=== PATIENT | male | born 1935 ===

== ENCOUNTER 2021-04-22 14:50 | Inpatient (IN) | payer MEDICARE ==
[2021-04-22] MEDS ORDERED: diphenhydrAMINE 50 MG/ML SDV ONE (15:33)
[2021-04-22] MEDS ORDERED: Sodium Chloride 0.9% 2.5 ML Syringe FLUSH PRN (15:41)
[2021-04-22] MEDS ORDERED: Sodium Chloride 0.9% 10 ML Syringe FLUSH PRN (15:41)
[2021-04-22] MEDS ORDERED: diphenhydrAMINE 50 MG/ML SDV IVPUSH ONE (15:42)
[2021-04-22] MEDS ORDERED: Sodium Chloride 0.9% 1,000 ML IV ONE (15:43)
[2021-04-22] MEDS ORDERED: LORazepam 2 MG/ML SDV IVPUSH ONE (15:56)
--- NOTE | 2021-04-22 16:26 | CR ---
For Patients: As a result of the Century Cures Act, medical imaging exams and procedure reports are released immediately into your electronic medical record. You may view this report before your referring provider. If you have questions, please contact your health care provider. Indication: Cough Comparison: Single view chest February 22, 2021 Technique: Single AP view chest Findings: There is hyperinflation and chronic interstitial change. There are increasing interstitial markings likely representing developing pulmonary vascular congestion with superimposed airspace opacity in the left upper lobe likely representing infiltrates. There is no pleural effusion or pneumothorax. The cardiac silhouette is mildly prominent similar to previous exam. The bony thorax is grossly intact. Impression: There is hyperinflation and increasing interstitial markings likely representing pulmonary vascular congestion with developing airspace opacity in the left upper lobe likely representing infiltrate. Dictated by London Soria MD @ 04/22/2021 4:24:[address] London Soria @ Apr 22 2021 4:24PM
[2021-04-22] MEDS ORDERED: cefTRIAXone 1 GM in Premix Bag 1 BAG IV ONE (16:31)
[2021-04-22 16:36] LABS: BLOOD UREA NITROGEN,BUN 40 mg/dL (7.0-18.0); CARBON DIOXIDE,CO2 27.9 mmol/L (21.0-32.0); CHLORIDE,CL 105 mmol/L (98-107); GLUCOSE RANDOM 171 mg/dL (74-106); POTASSIUM,K 4.5 mmol/L (3.5-5.1); SODIUM,NA 142 mmol/L (136-148)
--- NOTE | 2021-04-22 17:35 | EDM.PDOC ---
ED HPI GENERAL MEDICAL PROBLEM - General Chief Complaint: General Stated Complaint: POSS PX Time Seen by Provider: 04/22/21 15:14 - History of Present Illness INITIAL COMMENTS - FREE TEXT/NARRATIVE: HISTORY AND PHYSICAL: History of present illness: This is an 85-year-old gentleman with a history significant for Parkinson's disease, mild dementia, atrial fibrillation on anticoagulant therapy and digoxin, who presents ER today for further evaluation of altered mentation, shortness of breath, concerns for pneumonia from his nursing facility. Patient's is at bedside and is assisting with patient's history. Upon arrival to the ED, history is not obtainable from the patient as he is nonverbal. According to the although the patient does have some underlying dementia, she reports that at baseline he is able to have conversations with her. No identified fever at his nursing facility. Patient has been having a yellow productive cough with difficulty breathing. Patient has been able to tolerate some p.o. solids and liquids. reports no change in stool or urinary output. No new rashes. No recent falls or head trauma. Review of systems: As per history of present illness and below otherwise all systems reviewed and negative. Past medical history: As per history of present illness and as reviewed below otherwise noncontributory. Surgical history: As per history of present illness and as reviewed below otherwise noncontributory. Social history: No reported history of drug abuse. Family history: As per history of present illness and as reviewed below otherwise noncontributory. Physical exam: This patient was seen and evaluated during the 2019 SARS-CoV-2 novel coronavirus pandemic period. Community viral transmission is ongoing at time of this encounter and the emergency department is operating under pandemic response procedures. Constitutional: Patient was sonorous, loud respirations with his mouth open wide. Patient appears to be responding to the environment however he is nonverbal. Patient is unable to close his mouth and appears to have rotatory movement of his tongue. HEENT: Moist mucous membranes Head: Normocephalic and atraumatic Eyes: Right eye exhibits no discharge. Left eye exhibits no discharge. No scleral icterus Neck: Normal range of motion. No tracheal deviation present. Cardiovascular: Normal rate and regular rhythm. Pulmonary: Coarse breath sounds bilaterally. Abdominal: No distention Musculoskeletal: Normal range of motion Neurologic: Unable to assess Skin: [place], warm and dry. No diaphoresis Psychiatric: Unable to assess however patient does appear to have episodes of visual hallucinations which the reports he has had in the past but never is frequent is today. Nursing note and vital signs have been reviewed Diagnostics: Patient had a chest x-ray which revealed increased interstitial markings likely representing developing pulmonary vascular congestion with super imposed airspace opacity in the left upper lobe likely representing infiltrate. Patient's labs are significant for a white count of 10.0 with a slight left shift. Patient is a 89 segs and 10 lymphs. Patient's INR is elevated at 7. Patient's electrolytes are all within normal limits. Patient does have an elevated BUN and creatinine of 40 and 1.5. Patient's lactic acid level was 2.9 Therapeutics: Upon initial arrival into the ED, it was unclear the source of the patient's symptoms. Patient's jaw was clenched open with some rotary movement of his tongue. Patient was recently started on Remeron with his first dose yesterday. It was felt that this may be secondary to a dystonic reactions that he was given 50 mg of IV Benadryl without any significant change in his symptoms. Patient was continuing to have episodes of jerking movements which the attributed to visual hallucinations. Patient was given 0.5 mg of Ativan with resolution of the jerking movements and anxiety from the appearance of seeing visual hallucinations. Patient was given 1 g of IV Rocephin as well as NSS x1 L. Assessment and plan: This is an 85-year-old gentleman with a history significant for Parkinson's disease who is currently residing in a nursing facility secondary to a recent hip fracture in mid February. Patient presents ER today secondary to the [facility] concerned that he might have developed a pneumonia. Patient's chest x-ray reveals that he does have an opacification in the left upper lobe. Definitive disposition and diagnosis as appropriate pending reevaluation and review of above. - Related Data Allergies Allergy/AdvReac Type Severity Reaction Status Date / Time hydrocodone Allergy Cannot Verified 04/23/21 01:26 Remember oxycodone Allergy Cannot Verified 04/22/21 15:41 Remember Home Meds: Home Meds Carbidopa/Levodopa [Carbidopa-Levodopa 25-100] 1 tab PO QID 02/22/21 [History] Digoxin 125 mcg PO DAILY 02/22/21 [History] Doxazosin Mesylate [Cardura] 4 mg PO DAILY 02/22/21 [History] Finasteride [Proscar] 5 mg PO DAILY 02/22/21 [History] Levothyroxine 25 mcg PO DAILY 02/22/21 [History] Metoprolol Succinate 50 mg PO DAILY 02/22/21 [History] Warfarin Sodium 5 mg PO ASDIRECTED 02/22/21 [History] Carboxymethylcellulose Sodium [Artificial Tears] 1 drop EYEBOTH Q12H PRN 04/22/21 [History] Cholecalciferol (Vitamin D3) [Vitamin D3] 4,000 unit PO DAILY 04/22/21 [History] Docusate Sodium 100 mg PO BID 04/22/21 [History] Magnesium Hydroxide [Milk of Magnesia] 30 ml PO DAILY PRN 04/22/21 [History] Mirtazapine 7.5 mg PO BEDTIME 04/22/21 [History] Vit C/E/Zn/Coppr/Lutein/Zeaxan [Preservision Areds 2 Softgel] 1 each PO DAILY 04/22/21 [History] bisacodyL [Dulcolax] 10 mg RECTAL DAILY PRN 04/22/21 [History] traMADol [Ultram] 50 mg PO Q6H PRN 04/22/21 [History] Past Medical History Cardiovascular History: Reports: Afib, Hypertension Genitourinary History: Reports: Prostate Disorder Neurological History: Reports: Parkinson's, TIA Psychiatric History: Reports: Anxiety, Depression Endocrine/Metabolic History: Reports: Hypothyroidism - Infectious Disease History Infectious Disease History: Reports: None Social & Family History - Family History Family Medical History: No Pertinent Family History ED ROS GENERAL - Review of Systems Review Of Systems: See Below ED EXAM, GENERAL - Physical Exam Exam: See Below Course - Vital Signs Last Recorded V/S: Last Vital Signs Temp 97.8 F 04/23/21 04:32 Pulse 82 04/23/21 04:32 Resp 20 04/23/21 04:32 BP 143/74 H 04/23/21 04:32 Pulse Ox 97 04/23/21 04:32 - Orders/Labs/Meds Orders: Active Orders 24 hr Category Date Time Status Patient Status [ADT] Routine ADT 04/22/21 18:53 Active CULTURE BLOOD [BC] Stat Lab 04/22/21 15:38 Received CULTURE BLOOD [BC] Stat Lab 04/22/21 16:46 Received UA W/BEVERLY RFLX IF INDICATED [URIN] Stat Lab 04/22/21 15:42 Ordered Sodium Chloride 0.9% [Saline Flush] Med 04/22/21 15:41 Active 10 ml FLUSH ASDIRECTED PRN Sodium Chloride 0.9% [Saline Flush] Med 04/22/21 15:41 Active 2.5 ml FLUSH ASDIRECTED PRN Blood Culture x2 Reflex Set [OM.PC] Stat Oth 04/22/21 16:30 Ordered RT Suction Nasopharyngeal [RESPCARE] Stat Oth 04/22/21 17:40 Active Saline Lock Insert [OM.PC] Stat Oth 04/22/21 15:41 Ordered Medication Orders Carbidopa/Levodopa (Carbidopa/Levodopa 25-100 Mg Tab) 1 tab PO QID [facility] Last Admin: 04/23/21 07:06 Dose: Not Given Documented by: LUIS Azithromycin 500 mg/ Sodium (Chloride) 250 mls @ 250 mls/hr IV ONETIME [facility] Last Admin: 04/22/21 19:43 Dose: 250 mls/hr Documented by: AHMET Azithromycin 500 mg/ Sodium (Chloride) 250 mls @ 250 mls/hr IV Q24H ZEB Ceftriaxone Sodium/Dextrose (Rocephin In Dextrose,Iso-Osm 1 Gm/50 Ml) 50 mls @ 100 mls/hr IV Q24H [facility] Levothyroxine Sodium (Levothyroxine 25 Mcg Tab) 25 mcg PO ACBREAKFAST ZEB Metoprolol Succinate (Metoprolol Succinate 50 Mg Tab.Er) 50 mg PO DAILY [facility] Sodium Chloride (Sodium Chloride 0.9% 10 Ml Syringe) 10 ml FLUSH ASDIRECTED PRN PRN Reason: Keep Vein Open Last Admin: 04/22/21 15:44 Dose: 10 ml Documented by: [email or web address] Sodium Chloride (Sodium Chloride 0.9% 2.5 Ml Syringe) 2.5 ml FLUSH ASDIRECTED PRN PRN Reason: Keep Vein Open Last Admin: 04/22/21 15:44 Dose: 2.5 ml Documented by: [email or web address] Labs: Laboratory Tests 04/22/21 04/22/21 04/22/21 Range/Units 15:38 15:38 16:00 WBC 10.03 (4.0-11.0) K/uL RBC 4.20 L (4.50-5.90) M/uL Hgb 11.8 L (13.0-17.0) g/dL Hct 38.5 (38.0-50.0) % MCV 91.7 (80.0-98.0) fL MCH 28.1 (27.0-32.0) pg MCHC 30.6 L (31.0-37.0) g/dL RDW Std Deviation 46.1 (28.0-62.0) fl RDW Coeff of Yanna 14 (11.0-15.0) % Plt Count 198 (150-400) K/uL MPV 10.10 (7.40-12.00) fL Neut % (Auto) 89.0 H (48.0-80.0) % Lymph % (Auto) 6.1 L (16.0-40.0) % [place] % (Auto) 4.7 (0.0-15.0) % Eos % (Auto) 0.1 (0.0-7.0) % Baso % (Auto) 0.1 (0.0-1.5) % Neut # (Auto) 8.9 H (1.4-5.7) K/uL Lymph # (Auto) 0.6 (0.6-2.4) K/uL [place] # (Auto) 0.5 (0.0-0.8) K/uL Eos # (Auto) 0.0 (0.0-0.7) K/uL Baso # (Auto) 0.0 (0.0-0.1) K/uL Nucleated RBC % 0.0 /100WBC Nucleated RBCs # 0 K/uL INR APTT (18.6-31.3) SEC Sodium 142 (136-148) mmol/L Potassium 4.5 (3.5-5.1) mmol/L Chloride 105 (98-107) mmol/L Carbon Dioxide 27.9 (21.0-32.0) mmol/L BUN 40 H (7.0-18.0) mg/dL Creatinine 1.5 H (0.8-1.3) mg/dL Est Cr Clr Drug Dosing TNP Estimated GFR (MDRD) 44.7 ml/min Glucose 171 H (74-106) mg/dL Lactic Acid 2.9 H* (0.4-2.0) mmol/L Calcium 8.8 (8.5-10.1) mg/dL Total Bilirubin 0.6 (0.2-1.0) mg/dL AST 22 (15-37) IU/L ALT 13 L (14-63) IU/L Alkaline Phosphatase 143 H (46-116) U/L Total Protein 7.8 (6.4-8.2) g/dL Albumin 2.6 L (3.4-5.0) g/dL Globulin 5.2 H (2.6-4.0) g/dL Albumin/Globulin Ratio 0.5 L (0.9-1.6) Digoxin 0.7 L (0.9-2.0) ng/mL SARS-CoV-2 RNA (GARRETT) (NEGATIVE) 04/22/21 04/22/21 Range/Units 16:00 17:44 WBC (4.0-11.0) K/uL RBC (4.50-5.90) M/uL Hgb (13.0-17.0) g/dL Hct (38.0-50.0) % MCV (80.0-98.0) fL MCH (27.0-32.0) pg MCHC (31.0-37.0) g/dL RDW Std Deviation (28.0-62.0) fl RDW Coeff of Yanna (11.0-15.0) % Plt Count (150-400) K/uL MPV (7.40-12.00) fL Neut % (Auto) (48.0-80.0) % Lymph % (Auto) (16.0-40.0) % [place] % (Auto) (0.0-15.0) % Eos % (Auto) (0.0-7.0) % Baso % (Auto) (0.0-1.5) % Neut # (Auto) (1.4-5.7) K/uL Lymph # (Auto) (0.6-2.4) K/uL [place] # (Auto) (0.0-0.8) K/uL Eos # (Auto) (0.0-0.7) K/uL Baso # (Auto) (0.0-0.1) K/uL Nucleated RBC % /100WBC Nucleated RBCs # K/uL INR 7.03 H* APTT 54.1 H (18.6-31.3) SEC Sodium (136-148) mmol/L Potassium (3.5-5.1) mmol/L Chloride (98-107) mmol/L Carbon Dioxide (21.0-32.0) mmol/L BUN (7.0-18.0) mg/dL Creatinine (0.8-1.3) mg/dL Est Cr Clr Drug Dosing Estimated GFR (MDRD) ml/min Glucose (74-106) mg/dL Lactic Acid (0.4-2.0) mmol/L Calcium (8.5-10.1) mg/dL Total Bilirubin (0.2-1.0) mg/dL AST (15-37) IU/L ALT (14-63) IU/L Alkaline Phosphatase (46-116) U/L Total Protein (6.4-8.2) g/dL Albumin (3.4-5.0) g/dL Globulin (2.6-4.0) g/dL Albumin/Globulin Ratio (0.9-1.6) Digoxin (0.9-2.0) ng/mL SARS-CoV-2 RNA (GARRETT) NEGATIVE (NEGATIVE) Meds: Medications Generic Name Dose Route Start Last Admin Trade Name Freq PRN Reason Stop Dose Admin Carbidopa/Levodopa 1 tab 04/23/21 06:00 04/23/21 07:06 Carbidopa/Levodopa 25-100 Mg Tab PO Not Given QID ZEB Azithromycin 500 mg/ Sodium 250 mls @ 250 mls/hr 04/22/21 19:00 04/22/21 19:43 Chloride IV 250 mls/hr ONETIME ZEB Administration Azithromycin 500 mg/ Sodium 250 mls @ 250 mls/hr 04/23/21 16:00 Chloride IV Q24H ZEB Ceftriaxone Sodium/Dextrose 50 mls @ 100 mls/hr 04/23/21 16:00 Rocephin In Dextrose,Iso-Osm 1 Gm/50 Ml IV Q24H ZEB Levothyroxine Sodium 25 mcg 04/23/21 07:30 Levothyroxine 25 Mcg Tab PO ACBREAKFAST ZEB Metoprolol Succinate 50 mg 04/23/21 09:00 Metoprolol Succinate 50 Mg Tab.Er PO DAILY ZEB Sodium Chloride 10 ml 04/22/21 15:41 04/22/21 15:44 Sodium Chloride 0.9% 10 Ml Syringe FLUSH 10 ml ASDIRECTED PRN Administration Keep Vein Open Sodium Chloride 2.5 ml 04/22/21 15:41 04/22/21 15:44 Sodium Chloride 0.9% 2.5 Ml Syringe FLUSH 2.5 ml ASDIRECTED PRN Administration Keep Vein Open Discontinued Medications Generic Name Dose Route Start Last Admin Trade Name Freq PRN Reason Stop Dose Admin Diphenhydramine HCl Confirm 04/22/21 15:33 04/22/21 15:43 Diphenhydramine 50 Mg/Ml Sdv Administered 04/22/21 15:34 Not Given Dose 50 mg .ROUTE .STK-MED ONE Diphenhydramine HCl 50 mg 04/22/21 15:42 04/22/21 15:43 Diphenhydramine 50 Mg/Ml Sdv IVPUSH 04/22/21 15:43 50 mg ONETIME ONE Administration Sodium Chloride 1,000 mls @ 999 mls/hr 04/22/21 15:43 04/22/21 15:45 Normal Saline IV 04/22/21 16:43 999 mls/hr .Bolus ONE Administration Ceftriaxone Sodium/Dextrose 1 50 mls @ 100 mls/hr 04/22/21 16:31 04/22/21 17:19 gm/ Premix IV 04/22/21 17:00 100 mls/hr ONETIME ONE Administration Lorazepam 0.5 mg 04/22/21 15:56 04/22/21 16:11 Lorazepam 2 Mg/Ml Sdv IVPUSH 04/22/21 15:57 0.5 mg ONETIME ONE Administration Departure - Departure Time of Disposition: 18:00 Disposition: Admitted As Inpatient 68 Condition: Good Clinical Impression: Hypoxemia, Pneumonia - Discharge Information Sepsis Event Note (ED) - Evaluation Sepsis Screening Result: No Definite Risk - My Orders Last 24 Hours: My Active Orders 04/22/21 15:38 CULTURE BLOOD [BC] Stat 04/22/21 15:41 Sodium Chloride 0.9% [Saline Flush] 10 ml FLUSH ASDIRECTED PRN Sodium Chloride 0.9% [Saline Flush] 2.5 ml FLUSH ASDIRECTED PRN Saline Lock Insert [OM.PC] Stat 04/22/21 15:42 UA W/BEVERLY RFLX IF INDICATED [URIN] Stat 04/22/21 16:30 Blood Culture x2 Reflex Set [OM.PC] Stat 04/22/21 16:46 CULTURE BLOOD [BC] Stat 04/22/21 17:40 RT Suction Nasopharyngeal [RESPCARE] Stat 04/22/21 18:53 Patient Status [ADT] Routine - Assessment/Plan Last 24 Hours: My Active Orders 04/22/21 15:38 CULTURE BLOOD [BC] Stat 04/22/21 15:41 Sodium Chloride 0.9% [Saline Flush] 10 ml FLUSH ASDIRECTED PRN Sodium Chloride 0.9% [Saline Flush] 2.5 ml FLUSH ASDIRECTED PRN Saline Lock Insert [OM.PC] Stat 04/22/21 15:42 UA W/BEVERLY RFLX IF INDICATED [URIN] Stat 04/22/21 16:30 Blood Culture x2 Reflex Set [OM.PC] Stat 04/22/21 16:46 CULTURE BLOOD [BC] Stat 04/22/21 17:40 RT Suction Nasopharyngeal [RESPCARE] Stat 04/22/21 18:53 Patient Status [ADT] Routine
[2021-04-22] MEDS ORDERED: Azithromycin 500 MG in Sodium Chloride 0.9% 250 ML IV SCH (19:00)
--- NOTE | 2021-04-23 00:26 | PCM.HP.2 ---
H&P History of Present Illness - General Date of Service: 04/22/21 Admit Problem/Dx: Admission Diagnosis/Problem Admission Diagnosis/Problem Pneumonia - History of Present Illness Initial Comments - Free Text/Narative: 85 yo male with pmh of Parkinson's and dementia who was [facility] due to recent right hip fracture. Patient was brought to the ER due to concerns of pneumonia. PAtient had course breath sounds and was nonverbal. According to patient is normally not orientated but does speak. Apparently there had been a sharp decline in his mental status since admitted to [facility]. - Related Data Allergies/Adverse Reactions: Allergies Allergy/AdvReac Type Severity Reaction Status Date / Time hydrocodone Allergy Cannot Verified 04/23/21 01:26 Remember oxycodone Allergy Cannot Verified 04/22/21 15:41 Remember Home Medications: Home Meds Carbidopa/Levodopa [Carbidopa-Levodopa 25-100] 1 tab PO QID 02/22/21 [History] Digoxin 125 mcg PO DAILY 02/22/21 [History] Doxazosin Mesylate [Cardura] 4 mg PO DAILY 02/22/21 [History] Finasteride [Proscar] 5 mg PO DAILY 02/22/21 [History] Levothyroxine 25 mcg PO DAILY 02/22/21 [History] Metoprolol Succinate 50 mg PO DAILY 02/22/21 [History] Warfarin Sodium 5 mg PO ASDIRECTED 02/22/21 [History] Carboxymethylcellulose Sodium [Artificial Tears] 1 drop EYEBOTH Q12H PRN 04/22/21 [History] Cholecalciferol (Vitamin D3) [Vitamin D3] 4,000 unit PO DAILY 04/22/21 [History] Docusate Sodium 100 mg PO BID 04/22/21 [History] Magnesium Hydroxide [Milk of Magnesia] 30 ml PO DAILY PRN 04/22/21 [History] Mirtazapine 7.5 mg PO BEDTIME 04/22/21 [History] Vit C/E/Zn/Coppr/Lutein/Zeaxan [Preservision Areds 2 Softgel] 1 each PO DAILY 04/22/21 [History] bisacodyL [Dulcolax] 10 mg RECTAL DAILY PRN 04/22/21 [History] traMADol [Ultram] 50 mg PO Q6H PRN 04/22/21 [History] Past Medical History Cardiovascular History: Reports: Afib, Hypertension Genitourinary History: Reports: Prostate Disorder Neurological History: Reports: Parkinson's, TIA Psychiatric History: Reports: Anxiety, Depression Endocrine/Metabolic History: Reports: Hypothyroidism - Infectious Disease History Infectious Disease History: Reports: None Social & Family History - Family History Family Medical History: No Pertinent Family History H&P Review of Systems - Review of Systems: Review Of Systems: Unable To Obtain Reason Not Obtained: nonverbal Exam - Exam Exam: See Below - Vital Signs Vital Signs: Last Vital Signs Temp 36.1 C 04/22/21 15:30 Pulse 76 04/22/21 21:32 Resp 20 04/22/21 21:32 BP 134/76 04/22/21 21:32 Pulse Ox 95 04/22/21 21:32 Weight: 62.596 kg - Exam General: Lethargic HEENT: Conjunctiva Clear, Mucosa Moist & [place] Lungs: Normal Respiratory Effort, Rhonchi Cardiovascular: Regular Rate, Regular Rhythm GI/Abdominal Exam: Normal Bowel Sounds, Soft Extremities: Non-Tender, No Pedal Edema Skin: Warm, Dry, Intact Neurological: Other (does not follow commands, moves all for extremities) - Patient Data Lab Results Last 24 hrs: Laboratory Results - last 24 hr 04/22/21 04/22/21 04/22/21 Range/Units 15:38 15:38 16:00 WBC 10.03 (4.0-11.0) K/uL RBC 4.20 L (4.50-5.90) M/uL Hgb 11.8 L (13.0-17.0) g/dL Hct 38.5 (38.0-50.0) % MCV 91.7 (80.0-98.0) fL MCH 28.1 (27.0-32.0) pg MCHC 30.6 L (31.0-37.0) g/dL RDW Std Deviation 46.1 (28.0-62.0) fl RDW Coeff of Yanna 14 (11.0-15.0) % Plt Count 198 (150-400) K/uL MPV 10.10 (7.40-12.00) fL Neut % (Auto) 89.0 H (48.0-80.0) % Lymph % (Auto) 6.1 L (16.0-40.0) % [place] % (Auto) 4.7 (0.0-15.0) % Eos % (Auto) 0.1 (0.0-7.0) % Baso % (Auto) 0.1 (0.0-1.5) % Neut # (Auto) 8.9 H (1.4-5.7) K/uL Lymph # (Auto) 0.6 (0.6-2.4) K/uL [place] # (Auto) 0.5 (0.0-0.8) K/uL Eos # (Auto) 0.0 (0.0-0.7) K/uL Baso # (Auto) 0.0 (0.0-0.1) K/uL Nucleated RBC % 0.0 /100WBC Nucleated RBCs # 0 K/uL INR APTT (18.6-31.3) SEC Sodium 142 (136-148) mmol/L Potassium 4.5 (3.5-5.1) mmol/L Chloride 105 (98-107) mmol/L Carbon Dioxide 27.9 (21.0-32.0) mmol/L BUN 40 H (7.0-18.0) mg/dL Creatinine 1.5 H (0.8-1.3) mg/dL Est Cr Clr Drug Dosing TNP Estimated GFR (MDRD) 44.7 ml/min Glucose 171 H (74-106) mg/dL Lactic Acid 2.9 H* (0.4-2.0) mmol/L Calcium 8.8 (8.5-10.1) mg/dL Total Bilirubin 0.6 (0.2-1.0) mg/dL AST 22 (15-37) IU/L ALT 13 L (14-63) IU/L Alkaline Phosphatase 143 H (46-116) U/L Total Protein 7.8 (6.4-8.2) g/dL Albumin 2.6 L (3.4-5.0) g/dL Globulin 5.2 H (2.6-4.0) g/dL Albumin/Globulin Ratio 0.5 L (0.9-1.6) Digoxin 0.7 L (0.9-2.0) ng/mL SARS-CoV-2 RNA (GARRETT) (NEGATIVE) 04/22/21 04/22/21 04/22/21 Range/Units 16:00 17:44 20:52 WBC (4.0-11.0) K/uL RBC (4.50-5.90) M/uL Hgb (13.0-17.0) g/dL Hct (38.0-50.0) % MCV (80.0-98.0) fL MCH (27.0-32.0) pg MCHC (31.0-37.0) g/dL RDW Std Deviation (28.0-62.0) fl RDW Coeff of Yanna (11.0-15.0) % Plt Count (150-400) K/uL MPV (7.40-12.00) fL Neut % (Auto) (48.0-80.0) % Lymph % (Auto) (16.0-40.0) % [place] % (Auto) (0.0-15.0) % Eos % (Auto) (0.0-7.0) % Baso % (Auto) (0.0-1.5) % Neut # (Auto) (1.4-5.7) K/uL Lymph # (Auto) (0.6-2.4) K/uL [place] # (Auto) (0.0-0.8) K/uL Eos # (Auto) (0.0-0.7) K/uL Baso # (Auto) (0.0-0.1) K/uL Nucleated RBC % /100WBC Nucleated RBCs # K/uL INR 7.03 H* APTT 54.1 H (18.6-31.3) SEC Sodium (136-148) mmol/L Potassium (3.5-5.1) mmol/L Chloride (98-107) mmol/L Carbon Dioxide (21.0-32.0) mmol/L BUN (7.0-18.0) mg/dL Creatinine (0.8-1.3) mg/dL Est Cr Clr Drug Dosing Estimated GFR (MDRD) ml/min Glucose (74-106) mg/dL Lactic Acid 1.0 (0.4-2.0) mmol/L Calcium (8.5-10.1) mg/dL Total Bilirubin (0.2-1.0) mg/dL AST (15-37) IU/L ALT (14-63) IU/L Alkaline Phosphatase (46-116) U/L Total Protein (6.4-8.2) g/dL Albumin (3.4-5.0) g/dL Globulin (2.6-4.0) g/dL Albumin/Globulin Ratio (0.9-1.6) Digoxin (0.9-2.0) ng/mL SARS-CoV-2 RNA (GARRETT) NEGATIVE (NEGATIVE) Result Diagrams: 04/25/21 05:13 04/25/21 05:13 Sepsis Event Note - Evaluation Sepsis Screening Result: No Definite Risk - Focused Exam Vital Signs: Vital Signs Temp Pulse Resp BP Pulse Ox 04/22/21 21:32 76 20 134/76 95 04/22/21 15:30 36.1 C 98 18 124/78 90 L Problem List Initiated/Reviewed/Updated: Yes Orders Last 24hrs: Active Orders 24 hr Category Date Time Status Patient Status [ADT] Routine ADT 04/22/21 18:53 Active Head wo Cont [CT] Stat Exams 04/22/21 23:20 Taken CULTURE BLOOD [BC] Stat Lab 04/22/21 15:38 Received CULTURE BLOOD [BC] Stat Lab 04/22/21 16:46 Received UA W/BEVERLY RFLX IF INDICATED [URIN] Stat Lab 04/22/21 15:42 Ordered Azithromycin [Zithromax] 500 mg Med 04/22/21 19:00 Active Sodium Chloride 0.9% [Normal Saline (AdvBag)] 250 ml IV ONETIME Azithromycin [Zithromax] 500 mg Med 04/23/21 16:00 Active Sodium Chloride 0.9% [Normal Saline (AdvBag)] 250 ml IV Q24H Carbidopa/Levodopa [Sinemet 25-100 mg] Med 04/23/21 06:00 Active 1 tab PO QID Levothyroxine Med 04/23/21 07:30 Active 25 mcg PO ACBREAKFAST Metoprolol Succinate [Toprol XL] Med 04/23/21 09:00 Active 50 mg PO DAILY Sodium Chloride 0.9% [Saline Flush] Med 04/22/21 15:41 Active 10 ml FLUSH ASDIRECTED PRN Sodium Chloride 0.9% [Saline Flush] Med 04/22/21 15:41 Active 2.5 ml FLUSH ASDIRECTED PRN cefTRIAXone [Rocephin in Dextrose,Iso-Osm 1 GM/50 ML] Med 04/23/21 16:00 Active 50 ml IV Q24H Blood Culture x2 Reflex Set [OM.PC] Stat Ot 04/22/21 16:30 Ordered RT Suction Nasopharyngeal [RESPCARE] Stat Ot 04/22/21 17:40 Active Saline Lock Insert [OM.PC] Stat Oth 04/22/21 15:41 Ordered Medication Orders Carbidopa/Levodopa (Carbidopa/Levodopa 25-100 Mg Tab) 1 tab PO QID ZEB Azithromycin 500 mg/ Sodium (Chloride) 250 mls @ 250 mls/hr IV ONETIME ZEB Last Admin: 04/22/21 19:43 Dose: 250 mls/hr Documented by: [email or web address] Azithromycin 500 mg/ Sodium (Chloride) 250 mls @ 250 mls/hr IV Q24H ZEB Ceftriaxone Sodium/Dextrose (Rocephin In Dextrose,Iso-Osm 1 Gm/50 Ml) 50 mls @ 100 mls/hr IV Q24H [facility] Levothyroxine Sodium (Levothyroxine 25 Mcg Tab) 25 mcg PO ACBREAKFAST [facility] Metoprolol Succinate (Metoprolol Succinate 50 Mg Tab.Er) 50 mg PO DAILY ZEB Sodium Chloride (Sodium Chloride 0.9% 10 Ml Syringe) 10 ml FLUSH ASDIRECTED PRN PRN Reason: Keep Vein Open Last Admin: 04/22/21 15:44 Dose: 10 ml Documented by: [email or web address] Sodium Chloride (Sodium Chloride 0.9% 2.5 Ml Syringe) 2.5 ml FLUSH ASDIRECTED PRN PRN Reason: Keep Vein Open Last Admin: 04/22/21 15:44 Dose: 2.5 ml Documented by: [id number] Assessment/Plan Comment:: 85 yo male with pmh of Parkinson's admitted for pneumonia. Pneumonia: continue Rocephin and azithromycin. metabolic encephalopathy vs advancing parkinson's dementia: will continue to monitor CT scan of head pending. We will continue home parkinson's medications Supratherapeutic INR: holding Coumadin
--- NOTE | 2021-04-23 00:52 | CT ---
For Patients: As a result of the Cures Act, medical imaging exams and procedure reports are released immediately into your electronic medical record. You may view this report before your referring provider. If you have questions, please contact your health care provider. Indication: Acute mental status change. Technique: Noncontrast head CT Comparison: Head CT 02/22/2021 Findings: Generalized parenchymal volume loss with periventricular hypo lucencies likely reflecting chronic small vessel ischemic change. Small chronic infarctions bilateral cerebellar hemispheres. No acute intracranial hemorrhage or mass. No midline shift. No abnormal extra-axial air fluid collections. Mucosal thickening ethmoid air cells. Paranasal sinuses mastoid air cells skull and scalp appear unremarkable. Impression: No acute intracranial hemorrhage or mass. Please note that all CT scans at this facility use dose modulation, iterative reconstruction, and/or weight-based dosing when appropriate to reduce radiation dose to as low as reasonably achievable. Dictated by Margarita Guerrero MD @ 04/23/2021 12:51:[address] Margarita Guerrero @ Apr 23 2021 12:51AM
[2021-04-23 06:44] LABS: CARBON DIOXIDE,CO2 30.6 mmol/L (21.0-32.0)
[2021-04-23] MEDS: Carbidopa/Levodopa 25-100 MG Tab PO SCH ×3 (07:06→17:16)
[2021-04-23] MEDS ORDERED: Levothyroxine 25 MCG Tab PO SCH (07:30)
[2021-04-23] MEDS ORDERED: Metoprolol Succinate 50 MG Tab.ER PO SCH (09:00)
[2021-04-23] MEDS: Levothyroxine 25 MCG Tab PO SCH (11:56)
[2021-04-23] MEDS: Metoprolol Tartrate 25 MG Tab PO SCH ×2 (11:59→20:07)
[2021-04-23 14:35] LABS: POTASSIUM,K 4.3 mmol/L (3.5-5.1)
[2021-04-23] MEDS: Azithromycin 500 MG in Sodium Chloride 0.9% 250 ML IV SCH (17:13)
--- NOTE | 2021-04-23 17:40 | PCM.PN ---
- General Info Date of Service: 04/23/21 Admission Dx/Problem (Free Text): Admission Diagnosis/Problem Admission Diagnosis/Problem Pneumonia Subjective Update: Mr. Jerry is an 85-year-old gentleman with history of mild Parkinson's dementia, was brought in from senior living facility where he has been residing since February status post recent hip fracture. Was brought in due to concerns of significant cognitive decline, with associated shortness of breath, productive cough with yellow-green colored sputum. Prior to being brought in the hospital was somewhat verbal and arousable. Upon admission was noted to be nonverbal. Has remained afebrile, with no overnight events however has been sleeping deeply and difficult to arouse this morning. Patient was accompanied by by his bedside this morning. Functional Status: Reports: Other (Unable to arouse, therefore difficult to administer home dose of medications). Denies: Tolerating Diet - Patient Data Vitals - Most Recent: Last Vital Signs Temp 98.2 F 04/23/21 16:00 Pulse 88 04/23/21 16:00 Resp 18 04/23/21 16:00 BP 134/91 H 04/23/21 16:00 Pulse Ox 95 04/23/21 16:00 Weight - Most Recent: 126 lb 12.253 oz Lab Results Last 24 Hours: Laboratory Results - last 24 hr 04/22/21 04/22/21 04/23/21 Range/Units 17:44 20:52 05:30 WBC 8.31 (4.0-11.0) K/uL RBC 3.78 L (4.50-5.90) M/uL Hgb 10.7 L (13.0-17.0) g/dL Hct 34.9 L (38.0-50.0) % MCV 92.3 (80.0-98.0) fL MCH 28.3 (27.0-32.0) pg MCHC 30.7 L (31.0-37.0) g/dL RDW Std Deviation 46.7 (28.0-62.0) fl RDW Coeff of Yanna 14 (11.0-15.0) % Plt Count 187 (150-400) K/uL MPV 9.90 (7.40-12.00) fL Neut % (Auto) 87.1 H (48.0-80.0) % Lymph % (Auto) 6.7 L (16.0-40.0) % Dixon % (Auto) 5.9 (0.0-15.0) % Eos % (Auto) 0.2 (0.0-7.0) % Baso % (Auto) 0.1 (0.0-1.5) % Neut # (Auto) 7.2 H (1.4-5.7) K/uL Lymph # (Auto) 0.6 (0.6-2.4) K/uL Dixon # (Auto) 0.5 (0.0-0.8) K/uL Eos # (Auto) 0.0 (0.0-0.7) K/uL Baso # (Auto) 0.0 (0.0-0.1) K/uL Nucleated RBC % 0.0 /100WBC Nucleated RBCs # 0 K/uL INR Sodium (136-148) mmol/L Potassium (3.5-5.1) mmol/L Chloride (98-107) mmol/L Carbon Dioxide (21.0-32.0) mmol/L BUN (7.0-18.0) mg/dL Creatinine (0.8-1.3) mg/dL Est Cr Clr Drug Dosing mL/min Estimated GFR (MDRD) ml/min Glucose (74-106) mg/dL Lactic Acid 1.0 (0.4-2.0) mmol/L Calcium (8.5-10.1) mg/dL Total Bilirubin (0.2-1.0) mg/dL AST (15-37) IU/L ALT (14-63) IU/L Alkaline Phosphatase (46-116) U/L Total Protein (6.4-8.2) g/dL Albumin (3.4-5.0) g/dL Globulin (2.6-4.0) g/dL Albumin/Globulin Ratio (0.9-1.6) SARS-CoV-2 RNA (GARRETT) NEGATIVE (NEGATIVE) 04/23/21 04/23/21 Range/Units 05:30 09:40 WBC (4.0-11.0) K/uL RBC (4.50-5.90) M/uL Hgb (13.0-17.0) g/dL Hct (38.0-50.0) % MCV (80.0-98.0) fL MCH (27.0-32.0) pg MCHC (31.0-37.0) g/dL RDW Std Deviation (28.0-62.0) fl RDW Coeff of Yanna (11.0-15.0) % Plt Count (150-400) K/uL MPV (7.40-12.00) fL Neut % (Auto) (48.0-80.0) % Lymph % (Auto) (16.0-40.0) % Dixon % (Auto) (0.0-15.0) % Eos % (Auto) (0.0-7.0) % Baso % (Auto) (0.0-1.5) % Neut # (Auto) (1.4-5.7) K/uL Lymph # (Auto) (0.6-2.4) K/uL Dixon # (Auto) (0.0-0.8) K/uL Eos # (Auto) (0.0-0.7) K/uL Baso # (Auto) (0.0-0.1) K/uL Nucleated RBC % /100WBC Nucleated RBCs # K/uL INR 7.14 H* Sodium 148 (136-148) mmol/L Potassium 4.3 (3.5-5.1) mmol/L Chloride 111 H (98-107) mmol/L Carbon Dioxide 30.6 (21.0-32.0) mmol/L BUN 36 H (7.0-18.0) mg/dL Creatinine 1.3 (0.8-1.3) mg/dL Est Cr Clr Drug Dosing 35.02 mL/min Estimated GFR (MDRD) 52.7 ml/min Glucose 122 H (74-106) mg/dL Lactic Acid (0.4-2.0) mmol/L Calcium 8.6 (8.5-10.1) mg/dL Total Bilirubin 0.5 (0.2-1.0) mg/dL AST 21 (15-37) IU/L ALT 16 (14-63) IU/L Alkaline Phosphatase 129 H (46-116) U/L Total Protein 7.0 (6.4-8.2) g/dL Albumin 2.3 L (3.4-5.0) g/dL Globulin 4.7 H (2.6-4.0) g/dL Albumin/Globulin Ratio 0.5 L (0.9-1.6) SARS-CoV-2 RNA (GARRETT) (NEGATIVE) Lm Results Last 24 Hours: Microbiology 04/22/21 16:46 Aerobic Blood Culture - Preliminary Blood - Venous - Lab Draw NO GROWTH AFTER 1 DAY Anaerobic Blood Culture - Preliminary NO GROWTH AFTER 1 DAY 04/22/21 15:38 Aerobic Blood Culture - Preliminary Blood - Venous NO GROWTH AFTER 1 DAY Anaerobic Blood Culture - Preliminary NO GROWTH AFTER 1 DAY Med Orders - Current: Current Medications Carbidopa/Levodopa (Carbidopa/Levodopa 25-100 Mg Tab) 1 tab PO QID [facility] Last Admin: 04/23/21 17:16 Dose: 1 tab Documented by: Azithromycin 500 mg/ Sodium (Chloride) 250 mls @ 250 mls/hr IV Q24H [facility] Last Admin: 04/23/21 17:13 Dose: 250 mls/hr Documented by: Ceftriaxone Sodium/Dextrose (Rocephin In Dextrose,Iso-Osm 1 Gm/50 Ml) 50 mls @ 100 mls/hr IV Q24H [facility] Last Admin: 04/23/21 16:02 Dose: 100 mls/hr Documented by: Levothyroxine Sodium (Levothyroxine 25 Mcg Tab) 25 mcg PO ACBREAKFAST [facility] Last Admin: 04/23/21 11:56 Dose: 25 mcg Documented by: Metoprolol Tartrate (Metoprolol Tartrate 25 Mg Tab) 25 mg PO BID [facility] Last Admin: 04/23/21 11:59 Dose: 25 mg Documented by: Sodium Chloride (Sodium Chloride 0.9% 10 Ml Syringe) 10 ml FLUSH ASDIRECTED PRN PRN Reason: Keep Vein Open Last Admin: 04/22/21 15:44 Dose: 10 ml Documented by: Sodium Chloride (Sodium Chloride 0.9% 2.5 Ml Syringe) 2.5 ml FLUSH ASDIRECTED PRN PRN Reason: Keep Vein Open Last Admin: 04/22/21 15:44 Dose: 2.5 ml Documented by: Discontinued Medications Diphenhydramine HCl (Diphenhydramine 50 Mg/Ml Sdv) Confirm Administered Dose 50 mg .ROUTE .STK-MED ONE Stop: 04/22/21 15:34 Last Admin: 04/22/21 15:43 Dose: Not Given Documented by: Diphenhydramine HCl (Diphenhydramine 50 Mg/Ml Sdv) 50 mg IVPUSH ONETIME ONE Stop: 04/22/21 15:43 Last Admin: 04/22/21 15:43 Dose: 50 mg Documented by: Sodium Chloride (Normal Saline) 1,000 mls @ 999 mls/hr IV .Bolus ONE Stop: 04/22/21 16:43 Last Admin: 04/22/21 15:45 Dose: 999 mls/hr Documented by: Ceftriaxone Sodium/Dextrose 1 (gm/ Premix) 50 mls @ 100 mls/hr IV ONETIME ONE Stop: 04/22/21 17:00 Last Admin: 04/22/21 17:19 Dose: 100 mls/hr Documented by: Azithromycin 500 mg/ Sodium (Chloride) 250 mls @ 250 mls/hr IV ONETIME [facility] Last Admin: 04/22/21 19:43 Dose: 250 mls/hr Documented by: Levothyroxine Sodium (Levothyroxine 25 Mcg Tab) 25 mcg PO ACBREAKFAST [facility] Last Admin: 04/23/21 08:30 Dose: Not Given Documented by: Lorazepam (Lorazepam 2 Mg/Ml Sdv) 0.5 mg IVPUSH ONETIME ONE Stop: 04/22/21 15:57 Last Admin: 04/22/21 16:11 Dose: 0.5 mg Documented by: Metoprolol Succinate (Metoprolol Succinate 50 Mg Tab.Er) 50 mg PO DAILY [facility] Last Admin: 04/23/21 12:21 Dose: Not Given Documented by: - Exam General: Sedated. No: Alert HEENT: Pupils Equal, Pupils Reactive, EOMI, Mucous Membr. Moist/[place] Neck: Supple, No JVD Lungs: Clear to Auscultation, Normal Respiratory Effort Cardiovascular: Regular Rate, Regular Rhythm GI/Abdominal Exam: Normal Bowel Sounds, Soft, Non-Tender, No Organomegaly, No Distention Extremities: Normal Inspection, Normal Range of Motion, Non-Tender, No Pedal Edema, Normal Capillary Refill Peripheral Pulses: 2+: Carotid (L), Carotid (R), Dorsalis Pedis (L), Dorsalis Pedis (R) Skin: Warm, Dry, Intact Neurological: Strength Equal Bilateral, Other (Difficult to arouse therefore difficult to evaluate, however patient did respond by squeezing hands bilaterally and mobilizing feet when asked to wiggle his toes.) - Patient Data Lab Results Last 24 hrs: Laboratory Results - last 24 hr 04/22/21 04/22/21 04/23/21 Range/Units 17:44 20:52 05:30 WBC 8.31 (4.0-11.0) K/uL RBC 3.78 L (4.50-5.90) M/uL Hgb 10.7 L (13.0-17.0) g/dL Hct 34.9 L (38.0-50.0) % MCV 92.3 (80.0-98.0) fL MCH 28.3 (27.0-32.0) pg MCHC 30.7 L (31.0-37.0) g/dL RDW Std Deviation 46.7 (28.0-62.0) fl RDW Coeff of Yanna 14 (11.0-15.0) % Plt Count 187 (150-400) K/uL MPV 9.90 (7.40-12.00) fL Neut % (Auto) 87.1 H (48.0-80.0) % Lymph % (Auto) 6.7 L (16.0-40.0) % Dixon % (Auto) 5.9 (0.0-15.0) % Eos % (Auto) 0.2 (0.0-7.0) % Baso % (Auto) 0.1 (0.0-1.5) % Neut # (Auto) 7.2 H (1.4-5.7) K/uL Lymph # (Auto) 0.6 (0.6-2.4) K/uL Dixon # (Auto) 0.5 (0.0-0.8) K/uL Eos # (Auto) 0.0 (0.0-0.7) K/uL Baso # (Auto) 0.0 (0.0-0.1) K/uL Nucleated RBC % 0.0 /100WBC Nucleated RBCs # 0 K/uL INR Sodium (136-148) mmol/L Potassium (3.5-5.1) mmol/L Chloride (98-107) mmol/L Carbon Dioxide (21.0-32.0) mmol/L BUN (7.0-18.0) mg/dL Creatinine (0.8-1.3) mg/dL Est Cr Clr Drug Dosing mL/min Estimated GFR (MDRD) ml/min Glucose (74-106) mg/dL Lactic Acid 1.0 (0.4-2.0) mmol/L Calcium (8.5-10.1) mg/dL Total Bilirubin (0.2-1.0) mg/dL AST (15-37) IU/L ALT (14-63) IU/L Alkaline Phosphatase (46-116) U/L Total Protein (6.4-8.2) g/dL Albumin (3.4-5.0) g/dL Globulin (2.6-4.0) g/dL Albumin/Globulin Ratio (0.9-1.6) SARS-CoV-2 RNA (GARRETT) NEGATIVE (NEGATIVE) 04/23/21 04/23/21 Range/Units 05:30 09:40 WBC (4.0-11.0) K/uL RBC (4.50-5.90) M/uL Hgb (13.0-17.0) g/dL Hct (38.0-50.0) % MCV (80.0-98.0) fL MCH (27.0-32.0) pg MCHC (31.0-37.0) g/dL RDW Std Deviation (28.0-62.0) fl RDW Coeff of Yanna (11.0-15.0) % Plt Count (150-400) K/uL MPV (7.40-12.00) fL Neut % (Auto) (48.0-80.0) % Lymph % (Auto) (16.0-40.0) % Dixon % (Auto) (0.0-15.0) % Eos % (Auto) (0.0-7.0) % Baso % (Auto) (0.0-1.5) % Neut # (Auto) (1.4-5.7) K/uL Lymph # (Auto) (0.6-2.4) K/uL Dixon # (Auto) (0.0-0.8) K/uL Eos # (Auto) (0.0-0.7) K/uL Baso # (Auto) (0.0-0.1) K/uL Nucleated RBC % /100WBC Nucleated RBCs # K/uL INR 7.14 H* Sodium 148 (136-148) mmol/L Potassium 4.3 (3.5-5.1) mmol/L Chloride 111 H (98-107) mmol/L Carbon Dioxide 30.6 (21.0-32.0) mmol/L BUN 36 H (7.0-18.0) mg/dL Creatinine 1.3 (0.8-1.3) mg/dL Est Cr Clr Drug Dosing 35.02 mL/min Estimated GFR (MDRD) 52.7 ml/min Glucose 122 H (74-106) mg/dL Lactic Acid (0.4-2.0) mmol/L Calcium 8.6 (8.5-10.1) mg/dL Total Bilirubin 0.5 (0.2-1.0) mg/dL AST 21 (15-37) IU/L ALT 16 (14-63) IU/L Alkaline Phosphatase 129 H (46-116) U/L Total Protein 7.0 (6.4-8.2) g/dL Albumin 2.3 L (3.4-5.0) g/dL Globulin 4.7 H (2.6-4.0) g/dL Albumin/Globulin Ratio 0.5 L (0.9-1.6) SARS-CoV-2 RNA (GARRETT) (NEGATIVE) Result Diagrams: 04/23/21 05:30 04/23/21 05:30 Lm Results Last 24 hrs: Microbiology 04/22/21 16:46 Aerobic Blood Culture - Preliminary Blood - Venous - Lab Draw NO GROWTH AFTER 1 DAY Anaerobic Blood Culture - Preliminary NO GROWTH AFTER 1 DAY 04/22/21 15:38 Aerobic Blood Culture - Preliminary Blood - Venous NO GROWTH AFTER 1 DAY Anaerobic Blood Culture - Preliminary NO GROWTH AFTER 1 DAY Sepsis Event Note - Evaluation Sepsis Screening Result: No Definite Risk - Focused Exam Vital Signs: Vital Signs Temp Pulse Pulse Resp BP BP Pulse Ox 04/23/21 16:00 98.2 F 88 18 134/91 H 95 04/23/21 11:59 95 123/79 04/23/21 11:58 97.8 F 95 19 123/79 94 L 04/23/21 08:52 97.5 F 95 20 146/91 H 96 - Problem List & Annotations (1) Pneumonia SNOMED Code(s): 116909249 Code(s): J18.9 - PNEUMONIA, UNSPECIFIED ORGANISM Status: Acute Current Visit: Yes (2) Femoral neck fracture SNOMED Code(s): 1244279 Code(s): S72.009A - FRACTURE OF UNSP PART OF NECK OF UNSP FEMUR, INIT S tatus: Acute Current Visit: No Qualifiers: Encounter type: initial encounter Fracture type: closed Laterality: right Qualified Code(s): S72.001A - Fracture of unspecified part of neck of right femur, initial encounter for closed fracture - Problem List Review Problem List Initiated/Reviewed/Updated: Yes - Plan Plan:: 85 yo gentleman with pmh of Parkinson's admitted for pneumonia. 1. Pneumonia: Continue Rocephin and azithromycin. CXR demonstrated interstitial markings indicative of pulmonary congestion with superimposed airspace opacity in left upper lobe. Afebrile, no leukocytosis, blood cultures pending we will narrow antibiotics accordingly 2. Metabolic encephalopathy vs advancing parkinson's dementia: Will continue to monitor CT scan with any acute intracranial pathology continue home parkinson's medications 3. Supratherapeutic INR: 7.4 Holding Coumadin, no source of bleed noted at this time. 4. Hypothyroidism: Continue home dose of levothyroxine 5. History of A. fib: Continue home dose of digoxin, monitor on telemetry, will hold anticoagulation until INR returns to therapeutic level. 6. IDA: Improved, likely secondary to dehydration. Continue with maintenance IV fluids 125 LR.
[2021-04-23] MEDS: Lactated Ringers 1,000 ML IV SCH (22:23)
[2021-04-24] MEDS: Carbidopa/Levodopa 25-100 MG Tab PO SCH ×5 (00:16→23:52)
[2021-04-24] MEDS: Lactated Ringers 1,000 ML IV SCH (06:16)
[2021-04-24 08:13] LABS: POTASSIUM,K 3.8 mmol/L (3.5-5.1)
[2021-04-24] MEDS: Levothyroxine 25 MCG Tab PO SCH (09:39)
[2021-04-24] MEDS: Metoprolol Tartrate 25 MG Tab PO SCH ×2 (09:39→21:18)
[2021-04-24] MEDS ORDERED: Sodium Chloride 0.45% 1,000 ML IV SCH ×2 (13:15)
[2021-04-24] MEDS ORDERED: Phosphorus #1 250 MG Tab PO ONE (13:15)
--- NOTE | 2021-04-24 14:44 | PCM.PN ---
- General Info Date of Service: 04/24/21 Admission Dx/Problem (Free Text): Admission Diagnosis/Problem Admission Diagnosis/Problem Pneumonia Subjective Update: Mr. Jerry is an 85-year-old gentleman with history of mild Parkinson's dementia, being treated for possible pneumonia. Patient was difficult to wake yesterday, unable to give him all home meds. There were no overnight events. This morning he is much improved, was able to sit in chair have breakfast, at bedside found to be responsive and verbal. Patient appears in no acute distress. Functional Status: Reports: Tolerating Diet - Review of Systems General: Reports: Weakness, Fatigue HEENT: Reports: No Symptoms Pulmonary: Reports: No Symptoms Cardiovascular: Reports: No Symptoms Gastrointestinal: Reports: No Symptoms Genitourinary: Reports: No Symptoms Musculoskeletal: Reports: No Symptoms Skin: Reports: No Symptoms Neurological: Reports: No Symptoms Psychiatric: Reports: No Symptoms - Patient Data Vitals - Most Recent: Last Vital Signs Temp 98.5 F 04/24/21 12:43 Pulse 78 04/24/21 12:43 Resp 18 04/24/21 12:43 BP 125/65 04/24/21 12:43 Pulse Ox 95 04/24/21 12:43 Weight - Most Recent: 126 lb 12.253 oz I&O - Last 24 Hours: Intake & Output 04/23/21 04/24/21 04/24/21 22:59 06:59 14:59 Intake Total 100 786 Output Total 0 Balance 100 786 Lab Results Last 24 Hours: Laboratory Results - last 24 hr 04/24/21 04/24/21 04/24/21 Range/Units 07:44 07:44 07:44 WBC 7.95 (4.0-11.0) K/uL RBC 3.47 L (4.50-5.90) M/uL Hgb 9.9 L (13.0-17.0) g/dL Hct 31.8 L (38.0-50.0) % MCV 91.6 (80.0-98.0) fL MCH 28.5 (27.0-32.0) pg MCHC 31.1 (31.0-37.0) g/dL RDW Std Deviation 46.3 (28.0-62.0) fl RDW Coeff of Yanna 14 (11.0-15.0) % Plt Count 182 (150-400) K/uL MPV 10.00 (7.40-12.00) fL Neut % (Auto) 84.2 H (48.0-80.0) % Lymph % (Auto) 10.1 L (16.0-40.0) % [place] % (Auto) 4.7 (0.0-15.0) % Eos % (Auto) 0.9 (0.0-7.0) % Baso % (Auto) 0.1 (0.0-1.5) % Neut # (Auto) 6.7 H (1.4-5.7) K/uL Lymph # (Auto) 0.8 (0.6-2.4) K/uL [place] # (Auto) 0.4 (0.0-0.8) K/uL Eos # (Auto) 0.1 (0.0-0.7) K/uL Baso # (Auto) 0.0 (0.0-0.1) K/uL Nucleated RBC % 0.0 /100WBC Nucleated RBCs # 0 K/uL INR 5.45 Sodium 154 H (136-148) mmol/L Potassium 3.8 (3.5-5.1) mmol/L Chloride 115 H (98-107) mmol/L Carbon Dioxide 29.0 (21.0-32.0) mmol/L BUN 41 H (7.0-18.0) mg/dL Creatinine 1.2 (0.8-1.3) mg/dL Est Cr Clr Drug Dosing 37.93 mL/min Estimated GFR (MDRD) 57.8 ml/min Glucose 111 H (74-106) mg/dL Calcium 8.4 L (8.5-10.1) mg/dL Phosphorus 2.3 L (2.6-4.7) mg/dL Magnesium 2.1 (1.8-2.4) mg/dL Total Bilirubin 0.5 (0.2-1.0) mg/dL AST 21 (15-37) IU/L ALT 15 (14-63) IU/L Alkaline Phosphatase 119 H (46-116) U/L Total Protein 6.5 (6.4-8.2) g/dL Albumin 2.1 L (3.4-5.0) g/dL Globulin 4.4 H (2.6-4.0) g/dL Albumin/Globulin Ratio 0.5 L (0.9-1.6) Lm Results Last 24 Hours: Microbiology 04/22/21 16:46 Aerobic Blood Culture - Preliminary Blood - Venous - Lab Draw NO GROWTH AFTER 1 DAY Anaerobic Blood Culture - Preliminary NO GROWTH AFTER 1 DAY 04/22/21 15:38 Aerobic Blood Culture - Preliminary Blood - Venous NO GROWTH AFTER 1 DAY Anaerobic Blood Culture - Preliminary NO GROWTH AFTER 1 DAY Med Orders - Current: Current Medications Carbidopa/Levodopa (Carbidopa/Levodopa 25-100 Mg Tab) 1 tab PO QID [facility] Last Admin: 04/24/21 12:38 Dose: 1 tab Documented by: Azithromycin 500 mg/ Sodium (Chloride) 250 mls @ 250 mls/hr IV Q24H [facility] Last Admin: 04/23/21 17:13 Dose: 250 mls/hr Documented by: Ceftriaxone Sodium/Dextrose (Rocephin In Dextrose,Iso-Osm 1 Gm/50 Ml) 50 mls @ 100 mls/hr IV Q24H [facility] Last Admin: 04/23/21 16:02 Dose: 100 mls/hr Documented by: Sodium Chloride (Sodium Chloride 0.45%) 1,000 mls @ 50 mls/hr IV ASDIRECTED [facility] Levothyroxine Sodium (Levothyroxine 25 Mcg Tab) 25 mcg PO ACBREAKFAST [facility] Last Admin: 04/24/21 09:39 Dose: 25 mcg Documented by: Metoprolol Tartrate (Metoprolol Tartrate 25 Mg Tab) 25 mg PO BID [facility] Last Admin: 04/24/21 09:39 Dose: 25 mg Documented by: Sodium Chloride (Sodium Chloride 0.9% 10 Ml Syringe) 10 ml FLUSH ASDIRECTED PRN PRN Reason: Keep Vein Open Last Admin: 04/22/21 15:44 Dose: 10 ml Documented by: Sodium Chloride (Sodium Chloride 0.9% 2.5 Ml Syringe) 2.5 ml FLUSH ASDIRECTED PRN PRN Reason: Keep Vein Open Last Admin: 04/22/21 15:44 Dose: 2.5 ml Documented by: Discontinued Medications Diphenhydramine HCl (Diphenhydramine 50 Mg/Ml Sdv) Confirm Administered Dose 50 mg .ROUTE .STK-MED ONE Stop: 04/22/21 15:34 Last Admin: 04/22/21 15:43 Dose: Not Given Documented by: Diphenhydramine HCl (Diphenhydramine 50 Mg/Ml Sdv) 50 mg IVPUSH ONETIME ONE Stop: 04/22/21 15:43 Last Admin: 04/22/21 15:43 Dose: 50 mg Documented by: Sodium Chloride (Normal Saline) 1,000 mls @ 999 mls/hr IV .Bolus ONE Stop: 04/22/21 16:43 Last Admin: 04/22/21 15:45 Dose: 999 mls/hr Documented by: Ceftriaxone Sodium/Dextrose 1 (gm/ Premix) 50 mls @ 100 mls/hr IV ONETIME ONE Stop: 04/22/21 17:00 Last Admin: 04/22/21 17:19 Dose: 100 mls/hr Documented by: Azithromycin 500 mg/ Sodium (Chloride) 250 mls @ 250 mls/hr IV ONETIME [facility] Last Admin: 04/22/21 19:43 Dose: 250 mls/hr Documented by: Lactated Ringer's (Ringers, Lactated) 1,000 mls @ 125 mls/hr IV ASDIRECTED [facility] Last Admin: 04/24/21 06:16 Dose: 125 mls/hr Documented by: Sodium Chloride (Sodium Chloride 0.45%) 1,000 mls @ 100 mls/hr IV ASDIRECTED [facility] Levothyroxine Sodium (Levothyroxine 25 Mcg Tab) 25 mcg PO ACBREAKFAST [facility] Last Admin: 04/23/21 08:30 Dose: Not Given Documented by: Lorazepam (Lorazepam 2 Mg/Ml Sdv) 0.5 mg IVPUSH ONETIME ONE Stop: 04/22/21 15:57 Last Admin: 04/22/21 16:11 Dose: 0.5 mg Documented by: Metoprolol Succinate (Metoprolol Succinate 50 Mg Tab.Er) 50 mg PO DAILY [facility] Last Admin: 04/23/21 12:21 Dose: Not Given Documented by: Sodium Phosphate (Phosphorus #1 250 Mg Tab) 250 mg PO ONETIME ONE Stop: 04/24/21 13:16 Last Admin: 04/24/21 13:28 Dose: 250 mg Documented by: - Exam Quality Assessment: DVT Prophylaxis (Supratherapeutic therefore held Coumadin today) General: Alert, Oriented, Cooperative HEENT: Pupils Equal, Pupils Reactive, EOMI, Mucous Membr. Moist/[place] Neck: Supple, No JVD Lungs: Clear to Auscultation, Normal Respiratory Effort Cardiovascular: Regular Rate, Regular Rhythm GI/Abdominal Exam: Normal Bowel Sounds, Soft, Non-Tender, No Distention Back Exam: Normal Inspection Extremities: Normal Inspection, No Pedal Edema, Normal Capillary Refill Peripheral Pulses: 2+: Carotid (L), Carotid (R), Dorsalis Pedis (L), Dorsalis Pedis (R) Neurological: No New Focal Deficit, Strength Equal Bilateral Psy/Mental Status: Alert, Normal Affect, Normal Mood - Patient Data Lab Results Last 24 hrs: Laboratory Results - last 24 hr 04/24/21 04/24/21 04/24/21 Range/Units 07:44 07:44 07:44 WBC 7.95 (4.0-11.0) K/uL RBC 3.47 L (4.50-5.90) M/uL Hgb 9.9 L (13.0-17.0) g/dL Hct 31.8 L (38.0-50.0) % MCV 91.6 (80.0-98.0) fL MCH 28.5 (27.0-32.0) pg MCHC 31.1 (31.0-37.0) g/dL RDW Std Deviation 46.3 (28.0-62.0) fl RDW Coeff of Yanna 14 (11.0-15.0) % Plt Count 182 (150-400) K/uL MPV 10.00 (7.40-12.00) fL Neut % (Auto) 84.2 H (48.0-80.0) % Lymph % (Auto) 10.1 L (16.0-40.0) % [place] % (Auto) 4.7 (0.0-15.0) % Eos % (Auto) 0.9 (0.0-7.0) % Baso % (Auto) 0.1 (0.0-1.5) % Neut # (Auto) 6.7 H (1.4-5.7) K/uL Lymph # (Auto) 0.8 (0.6-2.4) K/uL [place] # (Auto) 0.4 (0.0-0.8) K/uL Eos # (Auto) 0.1 (0.0-0.7) K/uL Baso # (Auto) 0.0 (0.0-0.1) K/uL Nucleated RBC % 0.0 /100WBC Nucleated RBCs # 0 K/uL INR 5.45 Sodium 154 H (136-148) mmol/L Potassium 3.8 (3.5-5.1) mmol/L Chloride 115 H (98-107) mmol/L Carbon Dioxide 29.0 (21.0-32.0) mmol/L BUN 41 H (7.0-18.0) mg/dL Creatinine 1.2 (0.8-1.3) mg/dL Est Cr Clr Drug Dosing 37.93 mL/min Estimated GFR (MDRD) 57.8 ml/min Glucose 111 H (74-106) mg/dL Calcium 8.4 L (8.5-10.1) mg/dL Phosphorus 2.3 L (2.6-4.7) mg/dL Magnesium 2.1 (1.8-2.4) mg/dL Total Bilirubin 0.5 (0.2-1.0) mg/dL AST 21 (15-37) IU/L ALT 15 (14-63) IU/L Alkaline Phosphatase 119 H (46-116) U/L Total Protein 6.5 (6.4-8.2) g/dL Albumin 2.1 L (3.4-5.0) g/dL Globulin 4.4 H (2.6-4.0) g/dL Albumin/Globulin Ratio 0.5 L (0.9-1.6) Result Diagrams: 04/24/21 07:44 04/24/21 07:44 Lm Results Last 24 hrs: Microbiology 04/22/21 16:46 Aerobic Blood Culture - Preliminary Blood - Venous - Lab Draw NO GROWTH AFTER 1 DAY Anaerobic Blood Culture - Preliminary NO GROWTH AFTER 1 DAY 04/22/21 15:38 Aerobic Blood Culture - Preliminary Blood - Venous NO GROWTH AFTER 1 DAY Anaerobic Blood Culture - Preliminary NO GROWTH AFTER 1 DAY Sepsis Event Note - Evaluation Sepsis Screening Result: No Definite Risk - Focused Exam Vital Signs: Vital Signs Temp Pulse Pulse Resp BP BP Pulse Ox 04/24/21 12:43 98.5 F 78 18 125/65 95 04/24/21 09:39 76 141/82 H 04/24/21 08:12 98.2 F 76 19 141/82 H 95 04/24/21 04:00 97.3 F 92 20 147/89 H 96 - Problem List & Annotations (1) Pneumonia SNOMED Code(s): 350986469 Code(s): J18.9 - PNEUMONIA, UNSPECIFIED ORGANISM Status: Acute Current Visit: Yes (2) Femoral neck fracture SNOMED Code(s): 1947452 Code(s): S72.009A - FRACTURE OF UNSP PART OF NECK OF UNSP FEMUR, INIT Status: Acute Current Visit: No Qualifiers: Encounter type: initial encounter Fracture type: closed Laterality: right Qualified Code(s): S72.001A - Fracture of unspecified part of neck of right femur, initial encounter for closed fracture (3) Pneumonia SNOMED Code(s): 484831186 Code(s): J18.9 - PNEUMONIA, UNSPECIFIED ORGANISM Status: Acute Current Visit: Yes - Problem List Review Problem List Initiated/Reviewed/Updated: Yes - Plan Plan:: 85 yo gentleman with pmh of Parkinson's admitted for pneumonia. 1. Pneumonia: Continue azithromycin. CXR demonstrated interstitial markings indicative of pulmonary congestion with superimposed airspace opacity in left upper lobe. Afebrile, no leukocytosis, blood cultures pending we will narrow antibiotics accordingly 2. Metabolic encephalopathy vs advancing parkinson's dementia: Improved Received dose of Parkinson's medication this morning, was able to wake up, responsive, ate breakfast, Will continue to monitor closely CT scan with any acute intracranial pathology continue home parkinson's medications 3. Supratherapeutic INR: improved, 5.45 today Holding Coumadin, no source of bleed noted at this time, will resume once within therapeutic range. 4. Hypothyroidism: Continue home dose of levothyroxine 5. History of A. fib: Continue home dose of digoxin, monitor on telemetry, will hold anticoagulation until INR returns to therapeutic level. 6. Mild IDA: Had decreased p.o. which is improved, will continue with half-normal saline due to hypernatremia at 50 mL/h, recheck BMP at 1700. 7. Mild hypophosphatemia: Phosphate 2.3, replete with 250 mg 1 tab, continue to monitor daily labs
[2021-04-24] MEDS: Azithromycin 500 MG in Sodium Chloride 0.9% 250 ML IV SCH (16:53)
[2021-04-24 17:47] LABS: CARBON DIOXIDE,CO2 30.4 mmol/L (21.0-32.0); POTASSIUM,K 3.8 mmol/L (3.5-5.1)
[2021-04-25] MEDS: Carbidopa/Levodopa 25-100 MG Tab PO SCH ×3 (05:29→17:04)
[2021-04-25 06:31] LABS: BLOOD UREA NITROGEN,BUN 40 mg/dL (7.0-18.0); CARBON DIOXIDE,CO2 30.3 mmol/L (21.0-32.0); CHLORIDE,CL 114 mmol/L (98-107); GLUCOSE RANDOM 107 mg/dL (74-106); POTASSIUM,K 3.4 mmol/L (3.5-5.1); SODIUM,NA 152 mmol/L (136-148)
[2021-04-25] MEDS: Metoprolol Tartrate 25 MG Tab PO SCH ×2 (09:07→20:10)
[2021-04-25] MEDS: Levothyroxine 25 MCG Tab PO SCH (09:10)
[2021-04-25] MEDS ORDERED: Dextrose 5% in Water 1,000 ML IV SCH (11:15)
--- NOTE | 2021-04-25 13:31 | PCM.PN ---
- General Info Date of Service: 04/25/21 - Review of Systems Systems Review Comment:: denies any pain, sleepy this morning - Patient Data Vitals - Most Recent: Last Vital Signs Temp 36.3 C 04/25/21 12:37 Pulse 76 04/25/21 12:37 Resp 15 04/25/21 12:37 BP 139/71 04/25/21 12:37 Pulse Ox 93 L 04/25/21 12:37 Weight - Most Recent: 57.5 kg I&O - Last 24 Hours: Intake & Output 04/24/21 04/25/21 04/25/21 22:59 06:59 14:59 Intake Total 750 653 Output Total 0 Balance 750 653 Lab Results Last 24 Hours: Laboratory Results - last 24 hr 04/24/21 04/25/21 04/25/21 Range/Units 17:10 05:13 05:13 WBC 8.58 (4.0-11.0) K/uL RBC 3.43 L (4.50-5.90) M/uL Hgb 9.7 L (13.0-17.0) g/dL Hct 31.5 L (38.0-50.0) % MCV 91.8 (80.0-98.0) fL MCH 28.3 (27.0-32.0) pg MCHC 30.8 L (31.0-37.0) g/dL RDW Std Deviation 46.9 (28.0-62.0) fl RDW Coeff of Yanna 14 (11.0-15.0) % Plt Count 192 (150-400) K/uL MPV 9.60 (7.40-12.00) fL Neut % (Auto) 81.9 H (48.0-80.0) % Lymph % (Auto) 9.8 L (16.0-40.0) % [place] % (Auto) 4.2 (0.0-15.0) % Eos % (Auto) 4.0 (0.0-7.0) % Baso % (Auto) 0.1 (0.0-1.5) % Neut # (Auto) 7.0 H (1.4-5.7) K/uL Lymph # (Auto) 0.8 (0.6-2.4) K/uL [place] # (Auto) 0.4 (0.0-0.8) K/uL Eos # (Auto) 0.3 (0.0-0.7) K/uL Baso # (Auto) 0.0 (0.0-0.1) K/uL Nucleated RBC % 0.0 /100WBC Nucleated RBCs # 0 K/uL INR Sodium 152 H 152 H (136-148) mmol/L Potassium 3.8 3.4 L (3.5-5.1) mmol/L Chloride 113 H 114 H (98-107) mmol/L Carbon Dioxide 30.4 30.3 (21.0-32.0) mmol/L BUN 44 H 40 H (7.0-18.0) mg/dL Creatinine 1.2 1.0 (0.8-1.3) mg/dL Est Cr Clr Drug Dosing 37.93 45.52 mL/min Estimated GFR (MDRD) 57.8 > 60.0 ml/min Glucose 134 H 107 H (74-106) mg/dL Calcium 8.5 8.3 L (8.5-10.1) mg/dL Phosphorus 2.8 (2.6-4.7) mg/dL Magnesium 1.9 (1.8-2.4) mg/dL Total Bilirubin 0.5 (0.2-1.0) mg/dL AST 30 (15-37) IU/L ALT 9 L (14-63) IU/L Alkaline Phosphatase 117 H (46-116) U/L Total Protein 6.4 (6.4-8.2) g/dL Albumin 2.1 L (3.4-5.0) g/dL Globulin 4.3 H (2.6-4.0) g/dL Albumin/Globulin Ratio 0.5 L (0.9-1.6) /05/10 Range/Units 11:22 WBC (4.0-11.0) K/uL RBC (4.50-5.90) M/uL Hgb (13.0-17.0) g/dL Hct (38.0-50.0) % MCV (80.0-98.0) fL MCH (27.0-32.0) pg MCHC (31.0-37.0) g/dL RDW Std Deviation (28.0-62.0) fl RDW Coeff of Yanna (11.0-15.0) % Plt Count (150-400) K/uL MPV (7.40-12.00) fL Neut % (Auto) (48.0-80.0) % Lymph % (Auto) (16.0-40.0) % [place] % (Auto) (0.0-15.0) % Eos % (Auto) (0.0-7.0) % Baso % (Auto) (0.0-1.5) % Neut # (Auto) (1.4-5.7) K/uL Lymph # (Auto) (0.6-2.4) K/uL [place] # (Auto) (0.0-0.8) K/uL Eos # (Auto) (0.0-0.7) K/uL Baso # (Auto) (0.0-0.1) K/uL Nucleated RBC % /100WBC Nucleated RBCs # K/uL INR 4.19 Sodium (136-148) mmol/L Potassium (3.5-5.1) mmol/L Chloride (98-107) mmol/L Carbon Dioxide (21.0-32.0) mmol/L BUN (7.0-18.0) mg/dL Creatinine (0.8-1.3) mg/dL Est Cr Clr Drug Dosing mL/min Estimated GFR (MDRD) ml/min Glucose (74-106) mg/dL Calcium (8.5-10.1) mg/dL Phosphorus (2.6-4.7) mg/dL Magnesium (1.8-2.4) mg/dL Total Bilirubin (0.2-1.0) mg/dL AST (15-37) IU/L ALT (14-63) IU/L Alkaline Phosphatase (46-116) U/L Total Protein (6.4-8.2) g/dL Albumin (3.4-5.0) g/dL Globulin (2.6-4.0) g/dL Albumin/Globulin Ratio (0.9-1.6) Lm Results Last 24 Hours: Microbiology 04/22/21 16:46 Aerobic Blood Culture - Preliminary Blood - Venous - Lab Draw NO GROWTH AFTER 2 DAYS Anaerobic Blood Culture - Preliminary NO GROWTH AFTER 2 DAYS 04/22/21 15:38 Aerobic Blood Culture - Preliminary Blood - Venous NO GROWTH AFTER 2 DAYS Anaerobic Blood Culture - Preliminary NO GROWTH AFTER 2 DAYS Med Orders - Current: Current Medications Carbidopa/Levodopa (Carbidopa/Levodopa 25-100 Mg Tab) 1 tab PO QID [facility] Last Admin: 04/25/21 12:42 Dose: 1 tab Documented by: Azithromycin 500 mg/ Sodium (Chloride) 250 mls @ 250 mls/hr IV Q24H [facility] Last Admin: 04/24/21 16:53 Dose: 250 mls/hr Documented by: Ceftriaxone Sodium/Dextrose (Rocephin In Dextrose,Iso-Osm 1 Gm/50 Ml) 50 mls @ 100 mls/hr IV Q24H [facility] Last Admin: 04/24/21 16:01 Dose: 100 mls/hr Documented by: Dextrose/Water (Dextrose 5% In Water) 1,000 mls @ 50 mls/hr IV ASDIRECTED [facility] Stop: 04/26/21 07:14 Levothyroxine Sodium (Levothyroxine 25 Mcg Tab) 25 mcg PO ACBREAKFAST [facility] Last Admin: 04/25/21 09:10 Dose: 25 mcg Documented by: Metoprolol Tartrate (Metoprolol Tartrate 25 Mg Tab) 25 mg PO BID [facility] Last Admin: 04/25/21 09:07 Dose: 25 mg Documented by: Sodium Chloride (Sodium Chloride 0.9% 10 Ml Syringe) 10 ml FLUSH ASDIRECTED PRN PRN Reason: Keep Vein Open Last Admin: 04/22/21 15:44 Dose: 10 ml Documented by: Sodium Chloride (Sodium Chloride 0.9% 2.5 Ml Syringe) 2.5 ml FLUSH ASDIRECTED PRN PRN Reason: Keep Vein Open Last Admin: 04/22/21 15:44 Dose: 2.5 ml Documented by: Discontinued Medications Diphenhydramine HCl (Diphenhydramine 50 Mg/Ml Sdv) Confirm Administered Dose 50 mg .ROUTE .STK-MED ONE Stop: 04/22/21 15:34 Last Admin: 04/22/21 15:43 Dose: Not Given Documented by: Diphenhydramine HCl (Diphenhydramine 50 Mg/Ml Sdv) 50 mg IVPUSH ONETIME ONE Stop: 04/22/21 15:43 Last Admin: 04/22/21 15:43 Dose: 50 mg Documented by: Sodium Chloride (Normal Saline) 1,000 mls @ 999 mls/hr IV .Bolus ONE Stop: 04/22/21 16:43 Last Admin: 04/22/21 15:45 Dose: 999 mls/hr Documented by: Ceftriaxone Sodium/Dextrose 1 (gm/ Premix) 50 mls @ 100 mls/hr IV ONETIME ONE Stop: 04/22/21 17:00 Last Admin: 04/22/21 17:19 Dose: 100 mls/hr Documented by: Azithromycin 500 mg/ Sodium (Chloride) 250 mls @ 250 mls/hr IV ONETIME [facility] Last Admin: 04/22/21 19:43 Dose: 250 mls/hr Documented by: Lactated Ringer's (Ringers, Lactated) 1,000 mls @ 125 mls/hr IV ASDIRECTED [facility] Last Admin: 04/24/21 06:16 Dose: 125 mls/hr Documented by: Sodium Chloride (Sodium Chloride 0.45%) 1,000 mls @ 100 mls/hr IV ASDIRECTED [facility] Sodium Chloride (Sodium Chloride 0.45%) 1,000 mls @ 50 mls/hr IV ASDIRECTED [facility] Last Admin: 04/24/21 19:38 Dose: 50 mls/hr Documented by: Levothyroxine Sodium (Levothyroxine 25 Mcg Tab) 25 mcg PO ACBREAKFAST [facility] Last Admin: 04/23/21 08:30 Dose: Not Given Documented by: Lorazepam (Lorazepam 2 Mg/Ml Sdv) 0.5 mg IVPUSH ONETIME ONE Stop: 04/22/21 15:57 Last Admin: 04/22/21 16:11 Dose: 0.5 mg Documented by: Metoprolol Succinate (Metoprolol Succinate 50 Mg Tab.Er) 50 mg PO DAILY [facility] Last Admin: 04/23/21 12:21 Dose: Not Given Documented by: Sodium Phosphate (Phosphorus #1 250 Mg Tab) 250 mg PO ONETIME ONE Stop: 04/24/21 13:16 Last Admin: 04/24/21 13:28 Dose: 250 mg Documented by: - Exam General: Lethargic Lungs: Clear to Auscultation, Normal Respiratory Effort Cardiovascular: Regular Rate, Regular Rhythm GI/Abdominal Exam: Normal Bowel Sounds, Soft, Non-Tender Extremities: Non-Tender, No Pedal Edema Skin: Warm, Dry, Intact Neurological: No New Focal Deficit - Patient Data Lab Results Last 24 hrs: Laboratory Results - last 24 hr 04/24/21 04/25/21 04/25/21 Range/Units 17:10 05:13 05:13 WBC 8.58 (4.0-11.0) K/uL RBC 3.43 L (4.50-5.90) M/uL Hgb 9.7 L (13.0-17.0) g/dL Hct 31.5 L (38.0-50.0) % MCV 91.8 (80.0-98.0) fL MCH 28.3 (27.0-32.0) pg MCHC 30.8 L (31.0-37.0) g/dL RDW Std Deviation 46.9 (28.0-62.0) fl RDW Coeff of Yanna 14 (11.0-15.0) % Plt Count 192 (150-400) K/uL MPV 9.60 (7.40-12.00) fL Neut % (Auto) 81.9 H (48.0-80.0) % Lymph % (Auto) 9.8 L (16.0-40.0) % [place] % (Auto) 4.2 (0.0-15.0) % Eos % (Auto) 4.0 (0.0-7.0) % Baso % (Auto) 0.1 (0.0-1.5) % Neut # (Auto) 7.0 H (1.4-5.7) K/uL Lymph # (Auto) 0.8 (0.6-2.4) K/uL [place] # (Auto) 0.4 (0.0-0.8) K/uL Eos # (Auto) 0.3 (0.0-0.7) K/uL Baso # (Auto) 0.0 (0.0-0.1) K/uL Nucleated RBC % 0.0 /100WBC Nucleated RBCs # 0 K/uL INR Sodium 152 H 152 H (136-148) mmol/L Potassium 3.8 3.4 L (3.5-5.1) mmol/L Chloride 113 H 114 H (98-107) mmol/L Carbon Dioxide 30.4 30.3 (21.0-32.0) mmol/L BUN 44 H 40 H (7.0-18.0) mg/dL Creatinine 1.2 1.0 (0.8-1.3) mg/dL Est Cr Clr Drug Dosing 37.93 45.52 mL/min Estimated GFR (MDRD) 57.8 > 60.0 ml/min Glucose 134 H 107 H (74-106) mg/dL Calcium 8.5 8.3 L (8.5-10.1) mg/dL Phosphorus 2.8 (2.6-4.7) mg/dL Magnesium 1.9 (1.8-2.4) mg/dL Total Bilirubin 0.5 (0.2-1.0) mg/dL AST 30 (15-37) IU/L ALT 9 L (14-63) IU/L Alkaline Phosphatase 117 H (46-116) U/L Total Protein 6.4 (6.4-8.2) g/dL Albumin 2.1 L (3.4-5.0) g/dL Globulin 4.3 H (2.6-4.0) g/dL Albumin/Globulin Ratio 0.5 L (0.9-1.6) 04/25/21 Range/Units 11:22 WBC (4.0-11.0) K/uL RBC (4.50-5.90) M/uL Hgb (13.0-17.0) g/dL Hct (38.0-50.0) % MCV (80.0-98.0) fL MCH (27.0-32.0) pg MCHC (31.0-37.0) g/dL RDW Std Deviation (28.0-62.0) fl RDW Coeff of Yanna (11.0-15.0) % Plt Count (150-400) K/uL MPV (7.40-12.00) fL Neut % (Auto) (48.0-80.0) % Lymph % (Auto) (16.0-40.0) % [place] % (Auto) (0.0-15.0) % Eos % (Auto) (0.0-7.0) % Baso % (Auto) (0.0-1.5) % Neut # (Auto) (1.4-5.7) K/uL Lymph # (Auto) (0.6-2.4) K/uL [place] # (Auto) (0.0-0.8) K/uL Eos # (Auto) (0.0-0.7) K/uL Baso # (Auto) (0.0-0.1) K/uL Nucleated RBC % /100WBC Nucleated RBCs # K/uL INR 4.19 Sodium (136-148) mmol/L Potassium (3.5-5.1) mmol/L Chloride (98-107) mmol/L Carbon Dioxide (21.0-32.0) mmol/L BUN (7.0-18.0) mg/dL Creatinine (0.8-1.3) mg/dL Est Cr Clr Drug Dosing mL/min Estimated GFR (MDRD) ml/min Glucose (74-106) mg/dL Calcium (8.5-10.1) mg/dL Phosphorus (2.6-4.7) mg/dL Magnesium (1.8-2.4) mg/dL Total Bilirubin (0.2-1.0) mg/dL AST (15-37) IU/L ALT (14-63) IU/L Alkaline Phosphatase (46-116) U/L Total Protein (6.4-8.2) g/dL Albumin (3.4-5.0) g/dL Globulin (2.6-4.0) g/dL Albumin/Globulin Ratio (0.9-1.6) Result Diagrams: 04/25/21 05:13 04/25/21 05:13 Lm Results Last 24 hrs: Microbiology 04/22/21 16:46 Aerobic Blood Culture - Preliminary Blood - Venous - Lab Draw NO GROWTH AFTER 2 DAYS Anaerobic Blood Culture - Preliminary NO GROWTH AFTER 2 DAYS 04/22/21 15:38 Aerobic Blood Culture - Preliminary Blood - Venous NO GROWTH AFTER 2 DAYS Anaerobic Blood Culture - Preliminary NO GROWTH AFTER 2 DAYS Sepsis Event Note - Evaluation Sepsis Screening Result: No Definite Risk - Focused Exam Vital Signs: Vital Signs Temp Pulse Pulse Resp BP BP Pulse Ox 04/25/21 12:37 36.3 C 76 15 139/71 93 L 04/25/21 09:07 83 168/87 H 04/25/21 09:00 36.6 C 82 20 168/87 H 95 04/25/21 04:31 36.2 C 85 18 136/81 94 L - Problem List Review Problem List Initiated/Reviewed/Updated: No - My Orders Last 24 Hours: My Active Orders 04/25/21 11:15 Dextrose 5% in Water 1,000 ml IV ASDIRECTED 04/26/21 05:11 INR,PT,PROTHROMBIN TIME [COAG] AM - Plan Plan:: 85 yo male with pmh of Parkinson's admitted for pneumonia. Pneumonia: continue Rocephin and azithromycin. metabolic encephalopathy vs advancing parkinson's dementia: will continue to monitor CT scan of head pending. We will continue home parkinson's medications Supratherapeutic INR: holding Coumadin
[2021-04-25] MEDS: Azithromycin 500 MG in Sodium Chloride 0.9% 250 ML IV SCH (17:03)
[2021-04-26 05:57] LABS: BLOOD UREA NITROGEN,BUN 26 mg/dL (7.0-18.0); CARBON DIOXIDE,CO2 31.4 mmol/L (21.0-32.0); CHLORIDE,CL 113 mmol/L (98-107); GLUCOSE RANDOM 114 mg/dL (74-106); POTASSIUM,K 3.7 mmol/L (3.5-5.1); SODIUM,NA 150 mmol/L (136-148)
[2021-04-26] MEDS: Carbidopa/Levodopa 25-100 MG Tab PO SCH ×4 (06:08→18:16)
[2021-04-26] MEDS: Metoprolol Tartrate 25 MG Tab PO SCH ×2 (09:27→20:06)
[2021-04-26] MEDS: Levothyroxine 25 MCG Tab PO SCH (09:27)
[2021-04-26] MEDS ORDERED: Dextrose 5% in Water 1,000 ML IV SCH (11:30)
--- NOTE | 2021-04-26 11:51 | PCM.PN ---
- General Info Date of Service: 04/26/21 Admission Dx/Problem (Free Text): Admission Diagnosis/Problem Admission Diagnosis/Problem Pneumonia Subjective Update: On initial rounds patient sleeping. On second rounds patient alert and oriented with at bedside patient is talking and reports he is feeling better. Denies any pain denies any shortness of breath. Functional Status: Reports: Pain Controlled, Tolerating Diet - Review of Systems General: Reports: No Symptoms. Denies: Fatigue HEENT: Reports: No Symptoms Pulmonary: Denies: Shortness of Breath, Cough, Sputum Cardiovascular: Reports: No Symptoms. Denies: Chest Pain Gastrointestinal: Reports: No Symptoms. Denies: Abdominal Pain, Nausea, Vomiting Genitourinary: Reports: No Symptoms Musculoskeletal: Reports: No Symptoms Skin: Reports: No Symptoms Neurological: Reports: No Symptoms Psychiatric: Reports: No Symptoms - Patient Data Vitals - Most Recent: Last Vital Signs Temp 97.2 F 04/26/21 08:00 Pulse 81 04/26/21 09:27 Resp 16 04/26/21 08:00 BP 147/81 H 04/26/21 09:27 Pulse Ox 93 L 04/26/21 08:00 Weight - Most Recent: 57.5 kg I&O - Last 24 Hours: Intake & Output 04/25/21 04/26/21 04/26/21 22:59 06:59 14:59 Intake Total 1107 708 Output Total 0 Balance 1107 708 Lab Results Last 24 Hours: Laboratory Results - last 24 hr 04/25/21 04/26/21 04/26/21 Range/Units 11:22 04:56 04:56 WBC 8.18 (4.0-11.0) K/uL RBC 3.51 L (4.50-5.90) M/uL Hgb 9.8 L (13.0-17.0) g/dL Hct 32.3 L (38.0-50.0) % MCV 92.0 (80.0-98.0) fL MCH 27.9 (27.0-32.0) pg MCHC 30.3 L (31.0-37.0) g/dL RDW Std Deviation 46.4 (28.0-62.0) fl RDW Coeff of Yanna 14 (11.0-15.0) % Plt Count 184 (150-400) K/uL MPV 9.60 (7.40-12.00) fL Neut % (Auto) 76.7 (48.0-80.0) % Lymph % (Auto) 10.8 L (16.0-40.0) % Spencer % (Auto) 5.4 (0.0-15.0) % Eos % (Auto) 7.0 (0.0-7.0) % Baso % (Auto) 0.1 (0.0-1.5) % Neut # (Auto) 6.3 H (1.4-5.7) K/uL Lymph # (Auto) 0.9 (0.6-2.4) K/uL Spencer # (Auto) 0.4 (0.0-0.8) K/uL Eos # (Auto) 0.6 (0.0-0.7) K/uL Baso # (Auto) 0.0 (0.0-0.1) K/uL Nucleated RBC % 0.0 /100WBC Nucleated RBCs # 0 K/uL INR 4.19 Sodium 150 H (136-148) mmol/L Potassium 3.7 (3.5-5.1) mmol/L Chloride 113 H (98-107) mmol/L Carbon Dioxide 31.4 (21.0-32.0) mmol/L BUN 26 H (7.0-18.0) mg/dL Creatinine 1.1 (0.8-1.3) mg/dL Est Cr Clr Drug Dosing 41.38 mL/min Estimated GFR (MDRD) > 60.0 ml/min Glucose 114 H (74-106) mg/dL Calcium 8.1 L (8.5-10.1) mg/dL Phosphorus 2.8 (2.6-4.7) mg/dL Magnesium 1.8 (1.8-2.4) mg/dL Total Bilirubin 0.5 (0.2-1.0) mg/dL AST 38 H (15-37) IU/L ALT 11 L (14-63) IU/L Alkaline Phosphatase 118 H (46-116) U/L Total Protein 6.4 (6.4-8.2) g/dL Albumin 2.0 L (3.4-5.0) g/dL Globulin 4.4 H (2.6-4.0) g/dL Albumin/Globulin Ratio 0.5 L (0.9-1.6) 04/26/21 Range/Units 04:56 WBC (4.0-11.0) K/uL RBC (4.50-5.90) M/uL Hgb (13.0-17.0) g/dL Hct (38.0-50.0) % MCV (80.0-98.0) fL MCH (27.0-32.0) pg MCHC (31.0-37.0) g/dL RDW Std Deviation (28.0-62.0) fl RDW Coeff of Yanna (11.0-15.0) % Plt Count (150-400) K/uL MPV (7.40-12.00) fL Neut % (Auto) (48.0-80.0) % Lymph % (Auto) (16.0-40.0) % Spencer % (Auto) (0.0-15.0) % Eos % (Auto) (0.0-7.0) % Baso % (Auto) (0.0-1.5) % Neut # (Auto) (1.4-5.7) K/uL Lymph # (Auto) (0.6-2.4) K/uL Spencer # (Auto) (0.0-0.8) K/uL Eos # (Auto) (0.0-0.7) K/uL Baso # (Auto) (0.0-0.1) K/uL Nucleated RBC % /100WBC Nucleated RBCs # K/uL INR 4.05 Sodium (136-148) mmol/L Potassium (3.5-5.1) mmol/L Chloride (98-107) mmol/L Carbon Dioxide (21.0-32.0) mmol/L BUN (7.0-18.0) mg/dL Creatinine (0.8-1.3) mg/dL Est Cr Clr Drug Dosing mL/min Estimated GFR (MDRD) ml/min Glucose (74-106) mg/dL Calcium (8.5-10.1) mg/dL Phosphorus (2.6-4.7) mg/dL Magnesium (1.8-2.4) mg/dL Total Bilirubin (0.2-1.0) mg/dL AST (15-37) IU/L ALT (14-63) IU/L Alkaline Phosphatase (46-116) U/L Total Protein (6.4-8.2) g/dL Albumin (3.4-5.0) g/dL Globulin (2.6-4.0) g/dL Albumin/Globulin Ratio (0.9-1.6) Lm Results Last 24 Hours: Microbiology 04/22/21 16:46 Aerobic Blood Culture - Preliminary Blood - Venous - Lab Draw NO GROWTH AFTER 3 DAYS Anaerobic Blood Culture - Preliminary NO GROWTH AFTER 3 DAYS 04/22/21 15:38 Aerobic Blood Culture - Preliminary Blood - Venous NO GROWTH AFTER 3 DAYS Anaerobic Blood Culture - Preliminary NO GROWTH AFTER 3 DAYS Med Orders - Current: Current Medications Carbidopa/Levodopa (Carbidopa/Levodopa 25-100 Mg Tab) 1 tab PO QID [facility] Last Admin: 04/26/21 06:08 Dose: 1 tab Documented by: Azithromycin 500 mg/ Sodium (Chloride) 250 mls @ 250 mls/hr IV Q24H [facility] Last Admin: 04/25/21 17:03 Dose: 250 mls/hr Documented by: Ceftriaxone Sodium/Dextrose (Rocephin In Dextrose,Iso-Osm 1 Gm/50 Ml) 50 mls @ 100 mls/hr IV Q24H [facility] Last Admin: 04/25/21 16:02 Dose: 100 mls/hr Documented by: Dextrose/Water (Dextrose 5% In Water) 1,000 mls @ 50 mls/hr IV ASDIRECTED [facility] Stop: 04/27/21 07:29 Levothyroxine Sodium (Levothyroxine 25 Mcg Tab) 25 mcg PO ACBREAKFAST [facility] Last Admin: 04/26/21 09:27 Dose: 25 mcg Documented by: Metoprolol Tartrate (Metoprolol Tartrate 25 Mg Tab) 25 mg PO BID [facility] Last Admin: 04/26/21 09:27 Dose: 25 mg Documented by: Sodium Chloride (Sodium Chloride 0.9% 10 Ml Syringe) 10 ml FLUSH ASDIRECTED PRN PRN Reason: Keep Vein Open Last Admin: 04/22/21 15:44 Dose: 10 ml Documented by: Sodium Chloride (Sodium Chloride 0.9% 2.5 Ml Syringe) 2.5 ml FLUSH ASDIRECTED PRN PRN Reason: Keep Vein Open Last Admin: 04/22/21 15:44 Dose: 2.5 ml Documented by: Discontinued Medications Diphenhydramine HCl (Diphenhydramine 50 Mg/Ml Sdv) Confirm Administered Dose 50 mg .ROUTE .STK-MED ONE Stop: 04/22/21 15:34 Last Admin: 04/22/21 15:43 Dose: Not Given Documented by: Diphenhydramine HCl (Diphenhydramine 50 Mg/Ml Sdv) 50 mg IVPUSH ONETIME ONE Stop: 04/22/21 15:43 Last Admin: 04/22/21 15:43 Dose: 50 mg Documented by: Sodium Chloride (Normal Saline) 1,000 mls @ 999 mls/hr IV .Bolus ONE Stop: 04/22/21 16:43 Last Admin: 04/22/21 15:45 Dose: 999 mls/hr Documented by: Ceftriaxone Sodium/Dextrose 1 (gm/ Premix) 50 mls @ 100 mls/hr IV ONETIME ONE Stop: 04/22/21 17:00 Last Admin: 04/22/21 17:19 Dose: 100 mls/hr Documented by: Azithromycin 500 mg/ Sodium (Chloride) 250 mls @ 250 mls/hr IV ONETIME [facility]EB Last Admin: 04/22/21 19:43 Dose: 250 mls/hr Documented by: Lactated Ringer's (Ringers, Lactated) 1,000 mls @ 125 mls/hr IV ASDIRECTED [facility] Last Admin: 04/24/21 06:16 Dose: 125 mls/hr Documented by: Sodium Chloride (Sodium Chloride 0.45%) 1,000 mls @ 100 mls/hr IV ASDIRECTED ZEB Sodium Chloride (Sodium Chloride 0.45%) 1,000 mls @ 50 mls/hr IV ASDIRECTED [facility] Last Admin: 04/24/21 19:38 Dose: 50 mls/hr Documented by: Dextrose/Water (Dextrose 5% In Water) 1,000 mls @ 50 mls/hr IV ASDIRECTED [facility] Stop: 04/26/21 07:14 Last Admin: 04/25/21 14:20 Dose: 50 mls/hr Documented by: Levothyroxine Sodium (Levothyroxine 25 Mcg Tab) 25 mcg PO ACBREAKFAST [facility] Last Admin: 04/23/21 08:30 Dose: Not Given Documented by: Lorazepam (Lorazepam 2 Mg/Ml Sdv) 0.5 mg IVPUSH ONETIME ONE Stop: 04/22/21 15:57 Last Admin: 04/22/21 16:11 Dose: 0.5 mg Documented by: Metoprolol Succinate (Metoprolol Succinate 50 Mg Tab.Er) 50 mg PO DAILY ZEB Last Admin: 04/23/21 12:21 Dose: Not Given Documented by: Sodium Phosphate (Phosphorus #1 250 Mg Tab) 250 mg PO ONETIME ONE Stop: 04/24/21 13:16 Last Admin: 04/24/21 13:28 Dose: 250 mg Documented by: - Exam Quality Assessment: DVT Prophylaxis. No: Supplemental Oxygen General: Alert, Oriented, Cooperative, No Acute Distress Lungs: Normal Respiratory Effort, Decreased Breath Sounds, Other (bronchial lung sounds, when more awake was clear. ) Cardiovascular: Regular Rate, Regular Rhythm GI/Abdominal Exam: Normal Bowel Sounds, Soft, Non-Tender Back Exam: Normal Inspection, Full Range of Motion Extremities: Normal Inspection, Normal Range of Motion, Non-Tender, No Pedal Edema Neurological: No New Focal Deficit Psy/Mental Status: Alert, Normal Affect, Normal Mood - Patient Data Lab Results Last 24 hrs: Laboratory Results - last 24 hr 04/25/21 04/26/21 04/26/21 Range/Units 11:22 04:56 04:56 WBC 8.18 (4.0-11.0) K/uL RBC 3.51 L (4.50-5.90) M/uL Hgb 9.8 L (13.0-17.0) g/dL Hct 32.3 L (38.0-50.0) % MCV 92.0 (80.0-98.0) fL MCH 27.9 (27.0-32.0) pg MCHC 30.3 L (31.0-37.0) g/dL RDW Std Deviation 46.4 (28.0-62.0) fl RDW Coeff of Yanna 14 (11.0-15.0) % Plt Count 184 (150-400) K/uL MPV 9.60 (7.40-12.00) fL Neut % (Auto) 76.7 (48.0-80.0) % Lymph % (Auto) 10.8 L (16.0-40.0) % Spencer % (Auto) 5.4 (0.0-15.0) % Eos % (Auto) 7.0 (0.0-7.0) % Baso % (Auto) 0.1 (0.0-1.5) % Neut # (Auto) 6.3 H (1.4-5.7) K/uL Lymph # (Auto) 0.9 (0.6-2.4) K/uL Spencer # (Auto) 0.4 (0.0-0.8) K/uL Eos # (Auto) 0.6 (0.0-0.7) K/uL Baso # (Auto) 0.0 (0.0-0.1) K/uL Nucleated RBC % 0.0 /100WBC Nucleated RBCs # 0 K/uL INR 4.19 Sodium 150 H (136-148) mmol/L Potassium 3.7 (3.5-5.1) mmol/L Chloride 113 H (98-107) mmol/L Carbon Dioxide 31.4 (21.0-32.0) mmol/L BUN 26 H (7.0-18.0) mg/dL Creatinine 1.1 (0.8-1.3) mg/dL Est Cr Clr Drug Dosing 41.38 mL/min Estimated GFR (MDRD) > 60.0 ml/min Glucose 114 H (74-106) mg/dL Calcium 8.1 L (8.5-10.1) mg/dL Phosphorus 2.8 (2.6-4.7) mg/dL Magnesium 1.8 (1.8-2.4) mg/dL Total Bilirubin 0.5 (0.2-1.0) mg/dL AST 38 H (15-37) IU/L ALT 11 L (14-63) IU/L Alkaline Phosphatase 118 H (46-116) U/L Total Protein 6.4 (6.4-8.2) g/dL Albumin 2.0 L (3.4-5.0) g/dL Globulin 4.4 H (2.6-4.0) g/dL Albumin/Globulin Ratio 0.5 L (0.9-1.6) /06/09 Range/Units 04:56 WBC (4.0-11.0) K/uL RBC (4.50-5.90) M/uL Hgb (13.0-17.0) g/dL Hct (38.0-50.0) % MCV (80.0-98.0) fL MCH (27.0-32.0) pg MCHC (31.0-37.0) g/dL RDW Std Deviation (28.0-62.0) fl RDW Coeff of Yanna (11.0-15.0) % Plt Count (150-400) K/uL MPV (7.40-12.00) fL Neut % (Auto) (48.0-80.0) % Lymph % (Auto) (16.0-40.0) % Spencer % (Auto) (0.0-15.0) % Eos % (Auto) (0.0-7.0) % Baso % (Auto) (0.0-1.5) % Neut # (Auto) (1.4-5.7) K/uL Lymph # (Auto) (0.6-2.4) K/uL Spencer # (Auto) (0.0-0.8) K/uL Eos # (Auto) (0.0-0.7) K/uL Baso # (Auto) (0.0-0.1) K/uL Nucleated RBC % /100WBC Nucleated RBCs # K/uL INR 4.05 Sodium (136-148) mmol/L Potassium (3.5-5.1) mmol/L Chloride (98-107) mmol/L Carbon Dioxide (21.0-32.0) mmol/L BUN (7.0-18.0) mg/dL Creatinine (0.8-1.3) mg/dL Est Cr Clr Drug Dosing mL/min Estimated GFR (MDRD) ml/min Glucose (74-106) mg/dL Calcium (8.5-10.1) mg/dL Phosphorus (2.6-4.7) mg/dL Magnesium (1.8-2.4) mg/dL Total Bilirubin (0.2-1.0) mg/dL AST (15-37) IU/L ALT (14-63) IU/L Alkaline Phosphatase (46-116) U/L Total Protein (6.4-8.2) g/dL Albumin (3.4-5.0) g/dL Globulin (2.6-4.0) g/dL Albumin/Globulin Ratio (0.9-1.6) Result Diagrams: 04/26/21 04:56 04/26/21 04:56 Lm Results Last 24 hrs: Microbiology 04/22/21 16:46 Aerobic Blood Culture - Preliminary Blood - Venous - Lab Draw NO GROWTH AFTER 3 DAYS Anaerobic Blood Culture - Preliminary NO GROWTH AFTER 3 DAYS 04/22/21 15:38 Aerobic Blood Culture - Preliminary Blood - Venous NO GROWTH AFTER 3 DAYS Anaerobic Blood Culture - Preliminary NO GROWTH AFTER 3 DAYS Sepsis Event Note - Evaluation Sepsis Screening Result: No Definite Risk - Focused Exam Vital Signs: Vital Signs Temp Pulse Pulse Resp BP BP Pulse Ox 04/26/21 09:27 81 147/81 H 04/26/21 08:00 97.2 F 81 16 147/81 H 93 L 04/26/21 03:35 97.8 F 76 19 134/83 95 04/25/21 23:58 98.5 F 83 18 143/85 H 93 L - Problem List & Annotations (1) Parkinson disease SNOMED Code(s): 31699719 Code(s): G20 - PARKINSON'S DISEASE Status: Acute Current Visit: Yes (2) CAP (community acquired pneumonia) SNOMED Code(s): 496395680 Code(s): J18.9 - PNEUMONIA, UNSPECIFIED ORGANISM Status: Acute Current Visit: Yes Qualifiers: Laterality: left Lung location: upper lobe of lung Qualified Code(s): J18.9 - Pneumonia, unspecified organism (3) Metabolic encephalopathy SNOMED Code(s): 73889535 Code(s): G93.41 - METABOLIC ENCEPHALOPATHY Status: Acute Current Visit: Yes (4) Afib SNOMED Code(s): 68071029 Code(s): I48.91 - UNSPECIFIED ATRIAL FIBRILLATION Status: Chronic Current Visit: Yes (5) HTN (hypertension) SNOMED Code(s): 28916185 Code(s): I10 - ESSENTIAL (PRIMARY) HYPERTENSION Status: Chronic Current Visit: Yes Qualifiers: Hypertension type: essential hypertension Qualified Code(s): I10 - Essential (primary) hypertension (6) Hypothyroidism SNOMED Code(s): 87530966 Code(s): E03.9 - HYPOTHYROIDISM, UNSPECIFIED Status: Chronic Current Visit: Yes (7) BPH (benign prostatic hyperplasia) SNOMED Code(s): 787221415 Code(s): N40.0 - BENIGN PROSTATIC HYPERPLASIA WITHOUT LOWER URINRY TRACT SYMP Status: Chronic Current Visit: Yes (8) Hypernatremia SNOMED Code(s): 621203121 Code(s): E87.0 - HYPEROSMOLALITY AND HYPERNATREMIA Status: Acute Current Visit: Yes - Problem List Review Problem List Initiated/Reviewed/Updated: Yes - My Orders Last 24 Hours: My Active Orders 04/26/21 11:30 Dextrose 5% in Water 1,000 ml IV ASDIRECTED 04/26/21 11:50 PT Evaluation and Treatment [CONS] Routine - Plan Plan:: 85 yo male with pmh of Parkinson's admitted for pneumonia. 1. Community-acquired pneumonia: - continue Rocephin and azithromycin. -Steady improvement. No current need for oxygen. 2. Metabolic encephalopathy vs advancing parkinson's dementia: -Improved patient is more alert. -Head CT negative -Likely due to acute illness of community-acquired pneumonia -Continue Parkinson medication carbidopa levodopa -Has intermittent periods of confusion which is at baseline. 3. Hypernatremia -Encouraged to drink more fluids, had concerns he was drinking too much but we did express he should be drinking more and there is no limit. She v erbalized understanding. -Hypernatremia improved to 150 today. -Continue D5 water 50 mils x1 L recheck sodium in a.m. 4. Recent hip fracture -Resume physical therapy today 5. Atrial fibrillation/hypertension -INR initially supratherapeutic -Monitor INR daily pharmacy to help dose Coumadin -Continue metoprolol and digoxin 6. BPH -Continue finasteride and Flomax VTE prophylaxis: Coumadin CODE STATUS: DNR/DNI Dispo: 1 to 2 days pending improvement. Did discuss hospice consult with she is not wanting this at this time she was hoping this was more for in-home care versus end-of-life care. We will continue with above treatment and plan for discharge back to [place] in the coming days.
[2021-04-26] MEDS ORDERED: Ketamine 500 mg/10 ML MDV ONE (13:28)
[2021-04-26] MEDS ORDERED: Sodium Chloride 0.9% 2.5 ML Syringe FLUSH PRN (14:53)
[2021-04-26] MEDS: Azithromycin 500 MG in Sodium Chloride 0.9% 250 ML IV SCH (16:51)
[2021-04-26] MEDS: Doxazosin 4 MG Tab PO SCH (20:06)
[2021-04-27] MEDS: Carbidopa/Levodopa 25-100 MG Tab PO SCH ×4 (00:03→17:12)
[2021-04-27 05:53] LABS: BLOOD UREA NITROGEN,BUN 22 mg/dL (7.0-18.0); CARBON DIOXIDE,CO2 28.5 mmol/L (21.0-32.0); CHLORIDE,CL 109 mmol/L (98-107); GLUCOSE RANDOM 152 mg/dL (74-106); POTASSIUM,K 3.5 mmol/L (3.5-5.1); SODIUM,NA 145 mmol/L (136-148)
--- NOTE | 2021-04-27 08:26 | PCM.PN ---
- General Info Date of Service: 04/27/21 Admission Dx/Problem (Free Text): Admission Diagnosis/Problem Admission Diagnosis/Problem Pneumonia Subjective Update: Patient resting today. reports he is doing better and was alert and ate breakfast. Has been drinking more fluids reports he has not complained of any chest pain shortness of breath. Patient worked with therapy and now is resting, when patient is sleeping he is very difficult to arouse which is likely secondary to Parkinson's. Otherwise unable to obtain review of systems Functional Status: Reports: Pain Controlled, Tolerating Diet, Urinating. Denies: Ambulating - Review of Systems General: Reports: Weakness (Generalized) - Patient Data Vitals - Most Recent: Last Vital Signs Temp 97.0 F 04/27/21 07:18 Pulse 75 04/27/21 07:18 Resp 16 04/27/21 07:18 BP 126/73 04/27/21 07:18 Pulse Ox 91 L 04/27/21 07:18 Weight - Most Recent: 57.5 kg I&O - Last 24 Hours: Intake & Output 04/26/21 04/27/21 04/27/21 22:59 06:59 14:59 Intake Total 1176 787 Output Total 0 Balance 1176 787 Lab Results Last 24 Hours: Laboratory Results - last 24 hr 04/27/21 04/27/21 Range/Units 05:00 05:00 WBC 9.55 (4.0-11.0) K/uL RBC 3.53 L (4.50-5.90) M/uL Hgb 9.9 L (13.0-17.0) g/dL Hct 31.7 L (38.0-50.0) % MCV 89.8 (80.0-98.0) fL MCH 28.0 (27.0-32.0) pg MCHC 31.2 (31.0-37.0) g/dL RDW Std Deviation 44.2 (28.0-62.0) fl RDW Coeff of Yanna 14 (11.0-15.0) % Plt Count 188 (150-400) K/uL MPV 9.50 (7.40-12.00) fL Neut % (Auto) 89.6 H (48.0-80.0) % Lymph % (Auto) 4.9 L (16.0-40.0) % Sevier % (Auto) 3.8 (0.0-15.0) % Eos % (Auto) 1.6 (0.0-7.0) % Baso % (Auto) 0.1 (0.0-1.5) % Neut # (Auto) 8.6 H (1.4-5.7) K/uL Lymph # (Auto) 0.5 L (0.6-2.4) K/uL Sevier # (Auto) 0.4 (0.0-0.8) K/uL Eos # (Auto) 0.2 (0.0-0.7) K/uL Baso # (Auto) 0.0 (0.0-0.1) K/uL Nucleated RBC % 0.0 /100WBC Nucleated RBCs # 0 K/uL Sodium 145 (136-148) mmol/L Potassium 3.5 (3.5-5.1) mmol/L Chloride 109 H (98-107) mmol/L Carbon Dioxide 28.5 (21.0-32.0) mmol/L BUN 22 H (7.0-18.0) mg/dL Creatinine 1.0 (0.8-1.3) mg/dL Est Cr Clr Drug Dosing 45.52 mL/min Estimated GFR (MDRD) > 60.0 ml/min Glucose 152 H (74-106) mg/dL Calcium 7.9 L (8.5-10.1) mg/dL Phosphorus 3.0 (2.6-4.7) mg/dL Magnesium 1.8 (1.8-2.4) mg/dL Total Bilirubin 0.5 (0.2-1.0) mg/dL AST 49 H (15-37) IU/L ALT 16 (14-63) IU/L Alkaline Phosphatase 129 H (46-116) U/L Total Protein 6.4 (6.4-8.2) g/dL Albumin 2.1 L (3.4-5.0) g/dL Globulin 4.3 H (2.6-4.0) g/dL Albumin/Globulin Ratio 0.5 L (0.9-1.6) Lm Results Last 24 Hours: Microbiology 04/22/21 16:46 Aerobic Blood Culture - Preliminary Blood - Venous - Lab Draw NO GROWTH AFTER 4 DAYS Anaerobic Blood Culture - Preliminary NO GROWTH AFTER 4 DAYS 04/22/21 15:38 Aerobic Blood Culture - Preliminary Blood - Venous NO GROWTH AFTER 4 DAYS Anaerobic Blood Culture - Preliminary NO GROWTH AFTER 4 DAYS Med Orders - Current: Current Medications Carbidopa/Levodopa (Carbidopa/Levodopa 25-100 Mg Tab) 1 tab PO QID [facility] Last Admin: 04/27/21 06:28 Dose: 1 tab Documented by: Digoxin (Digoxin 125 Mcg Tab) 125 mcg PO DAILY [facility] Doxazosin Mesylate (Doxazosin 4 Mg Tab) 4 mg PO BEDTIME [facility] Last Admin: 04/26/21 20:06 Dose: 4 mg Documented by: Finasteride (Finasteride 5 Mg Tab) 5 mg PO DAILY [facility] Azithromycin 500 mg/ Sodium (Chloride) 250 mls @ 250 mls/hr IV Q24H [facility] Last Admin: 04/26/21 16:51 Dose: 250 mls/hr Documented by: Ceftriaxone Sodium/Dextrose (Rocephin In Dextrose,Iso-Osm 1 Gm/50 Ml) 50 mls @ 100 mls/hr IV Q24H [facility] Last Admin: 04/26/21 15:37 Dose: 100 mls/hr Documented by: Levothyroxine Sodium (Levothyroxine 25 Mcg Tab) 25 mcg PO ACBREAKFAST [facility] Last Admin: 04/26/21 09:27 Dose: 25 mcg Documented by: Metoprolol Tartrate (Metoprolol Tartrate 25 Mg Tab) 25 mg PO BID [facility] Last Admin: 04/26/21 20:06 Dose: 25 mg Documented by: Sodium Chloride (Sodium Chloride 0.9% 2.5 Ml Syringe) 2.5 ml FLUSH ASDIRECTED PRN PRN Reason: Keep Vein Open Warfarin Sodium (Warfarin Ask Dosing) 1 each PO DAILY@1400 [facility] Discontinued Medications Diphenhydramine HCl (Diphenhydramine 50 Mg/Ml Sdv) Confirm Administered Dose 50 mg .ROUTE .STK-MED ONE Stop: 04/22/21 15:34 Last Admin: 04/22/21 15:43 Dose: Not Given Documented by: Diphenhydramine HCl (Diphenhydramine 50 Mg/Ml Sdv) 50 mg IVPUSH ONETIME ONE Stop: 04/22/21 15:43 Last Admin: 04/22/21 15:43 Dose: 50 mg Documented by: Sodium Chloride (Normal Saline) 1,000 mls @ 999 mls/hr IV .Bolus ONE Stop: 04/22/21 16:43 Last Admin: 04/22/21 15:45 Dose: 999 mls/hr Documented by: Ceftriaxone Sodium/Dextrose 1 (gm/ Premix) 50 mls @ 100 mls/hr IV ONETIME ONE Stop: 04/22/21 17:00 Last Admin: 04/22/21 17:19 Dose: 100 mls/hr Documented by: Azithromycin 500 mg/ Sodium (Chloride) 250 mls @ 250 mls/hr IV ONETIME [facility] Last Admin: 04/22/21 19:43 Dose: 250 mls/hr Documented by: Lactated Ringer's (Ringers, Lactated) 1,000 mls @ 125 mls/hr IV ASDIRECTED [facility] Last Admin: 04/24/21 06:16 Dose: 125 mls/hr Documented by: Sodium Chloride (Sodium Chloride 0.45%) 1,000 mls @ 100 mls/hr IV ASDIRECTED ZEB Sodium Chloride (Sodium Chloride 0.45%) 1,000 mls @ 50 mls/hr IV ASDIRECTED [facility] Last Admin: 04/24/21 19:38 Dose: 50 mls/hr Documented by: Dextrose/Water (Dextrose 5% In Water) 1,000 mls @ 50 mls/hr IV ASDIRECTED [facility] Stop: 04/26/21 07:14 Last Admin: 04/25/21 14:20 Dose: 50 mls/hr Documented by: Dextrose/Water (Dextrose 5% In Water) 1,000 mls @ 50 mls/hr IV ASDIRECTED [facility] Stop: 04/27/21 07:29 Last Admin: 04/26/21 12:05 Dose: 50 mls/hr Documented by: Ketamine HCl (Ketamine 500 Mg/10 Ml Mdv) Confirm Administered Dose 500 mg .ROUTE .STK-MED ONE Stop: 04/26/21 13:29 Levothyroxine Sodium (Levothyroxine 25 Mcg Tab) 25 mcg PO ACBREAKFAST [facility] Last Admin: 04/23/21 08:30 Dose: Not Given Documented by: Lorazepam (Lorazepam 2 Mg/Ml Sdv) 0.5 mg IVPUSH ONETIME ONE Stop: 04/22/21 15:57 Last Admin: 04/22/21 16:11 Dose: 0.5 mg Documented by: Metoprolol Succinate (Metoprolol Succinate 50 Mg Tab.Er) 50 mg PO DAILY [facility] Last Admin: 04/23/21 12:21 Dose: Not Given Documented by: Sodium Chloride (Sodium Chloride 0.9% 10 Ml Syringe) 10 ml FLUSH ASDIRECTED PRN PRN Reason: Keep Vein Open Last Admin: 04/22/21 15:44 Dose: 10 ml Documented by: Sodium Chloride (Sodium Chloride 0.9% 2.5 Ml Syringe) 2.5 ml FLUSH ASDIRECTED PRN PRN Reason: Keep Vein Open Last Admin: 04/22/21 15:44 Dose: 2.5 ml Documented by: Sodium Phosphate (Phosphorus #1 250 Mg Tab) 250 mg PO ONETIME ONE Stop: 04/24/21 13:16 Last Admin: 04/24/21 13:28 Dose: 250 mg Documented by: - Exam Quality Assessment: DVT Prophylaxis. No: Supplemental Oxygen General: Alert, Cooperative Lungs: Clear to Auscultation, Normal Respiratory Effort Cardiovascular: Regular Rate, Irregular Rhythm GI/Abdominal Exam: Normal Bowel Sounds, Soft, Non-Tender, No Organomegaly Extremities: Normal Inspection, Normal Range of Motion, Non-Tender, No Pedal Edema Skin: Warm, Dry Wound/Incisions: Healing Well Neurological: No New Focal Deficit Psy/Mental Status: Alert, Normal Affect, Normal Mood - Patient Data Lab Results Last 24 hrs: Laboratory Results - last 24 hr 04/27/21 04/27/21 Range/Units 05:00 05:00 WBC 9.55 (4.0-11.0) K/uL RBC 3.53 L (4.50-5.90) M/uL Hgb 9.9 L (13.0-17.0) g/dL Hct 31.7 L (38.0-50.0) % MCV 89.8 (80.0-98.0) fL MCH 28.0 (27.0-32.0) pg MCHC 31.2 (31.0-37.0) g/dL RDW Std Deviation 44.2 (28.0-62.0) fl RDW Coeff of Yanna 14 (11.0-15.0) % Plt Count 188 (150-400) K/uL MPV 9.50 (7.40-12.00) fL Neut % (Auto) 89.6 H (48.0-80.0) % Lymph % (Auto) 4.9 L (16.0-40.0) % Sevier % (Auto) 3.8 (0.0-15.0) % Eos % (Auto) 1.6 (0.0-7.0) % Baso % (Auto) 0.1 (0.0-1.5) % Neut # (Auto) 8.6 H (1.4-5.7) K/uL Lymph # (Auto) 0.5 L (0.6-2.4) K/uL Sevier # (Auto) 0.4 (0.0-0.8) K/uL Eos # (Auto) 0.2 (0.0-0.7) K/uL Baso # (Auto) 0.0 (0.0-0.1) K/uL Nucleated RBC % 0.0 /100WBC Nucleated RBCs # 0 K/uL Sodium 145 (136-148) mmol/L Potassium 3.5 (3.5-5.1) mmol/L Chloride 109 H (98-107) mmol/L Carbon Dioxide 28.5 (21.0-32.0) mmol/L BUN 22 H (7.0-18.0) mg/dL Creatinine 1.0 (0.8-1.3) mg/dL Est Cr Clr Drug Dosing 45.52 mL/min Estimated GFR (MDRD) > 60.0 ml/min Glucose 152 H (74-106) mg/dL Calcium 7.9 L (8.5-10.1) mg/dL Phosphorus 3.0 (2.6-4.7) mg/dL Magnesium 1.8 (1.8-2.4) mg/dL Total Bilirubin 0.5 (0.2-1.0) mg/dL AST 49 H (15-37) IU/L ALT 16 (14-63) IU/L Alkaline Phosphatase 129 H (46-116) U/L Total Protein 6.4 (6.4-8.2) g/dL Albumin 2.1 L (3.4-5.0) g/dL Globulin 4.3 H (2.6-4.0) g/dL Albumin/Globulin Ratio 0.5 L (0.9-1.6) Result Diagrams: 04/27/21 05:00 04/27/21 05:00 Lm Results Last 24 hrs: Microbiology 04/22/21 16:46 Aerobic Blood Culture - Preliminary Blood - Venous - Lab Draw NO GROWTH AFTER 4 DAYS Anaerobic Blood Culture - Preliminary NO GROWTH AFTER 4 DAYS 04/22/21 15:38 Aerobic Blood Culture - Preliminary Blood - Venous NO GROWTH AFTER 4 DAYS Anaerobic Blood Culture - Preliminary NO GROWTH AFTER 4 DAYS Sepsis Event Note - Evaluation Sepsis Screening Result: No Definite Risk - Focused Exam Vital Signs: Vital Signs Temp Pulse Resp BP Pulse Ox 04/27/21 07:18 97.0 F 75 16 126/73 91 L 04/27/21 05:10 97 F 87 16 104/68 94 L 04/27/21 00:11 97.2 F 88 17 119/63 95 - Problem List & Annotations (1) Parkinson disease SNOMED Code(s): 50005506 Code(s): G20 - PARKINSON'S DISEASE Status: Acute Current Visit: Yes (2) CAP (community acquired pneumonia) SNOMED Code(s): 462937728 Code(s): J18.9 - PNEUMONIA, UNSPECIFIED ORGANISM Status: Acute Current Visit: Yes Qualifiers: Laterality: left Lung location: upper lobe of lung Qualified Code(s): J18.9 - Pneumonia, unspecified organism (3) Metabolic encephalopathy SNOMED Code(s): 66598325 Code(s): G93.41 - METABOLIC ENCEPHALOPATHY Status: Acute Current Visit: Yes (4) Afib SNOMED Code(s): 68097805 Code(s): I48.91 - UNSPECIFIED ATRIAL FIBRILLATION Status: Chronic Current Visit: Yes (5) HTN (hypertension) SNOMED Code(s): 23195867 Code(s): I10 - ESSENTIAL (PRIMARY) HYPERTENSION Status: Chronic Current Visit: Yes Qualifiers: Hypertension type: essential hypertension Qualified Code(s): I10 - Essential (primary) hypertension (6) Hypothyroidism SNOMED Code(s): 54694566 Code(s): E03.9 - HYPOTHYROIDISM, UNSPECIFIED Status: Chronic Current Visit: Yes (7) BPH (benign prostatic hyperplasia) SNOMED Code(s): 237959171 Code(s): N40.0 - BENIGN PROSTATIC HYPERPLASIA WITHOUT LOWER URINRY TRACT SYMP Status: Chronic Current Visit: Yes (8) Hypernatremia SNOMED Code(s): 314025281 Code(s): E87.0 - HYPEROSMOLALITY AND HYPERNATREMIA Status: Acute Current Visit: Yes - Problem List Review Problem List Initiated/Reviewed/Updated: Yes - My Orders Last 24 Hours: My Active Orders 04/26/21 11:50 PT Evaluation and Treatment [CONS] Routine 04/26/21 14:53 Sodium Chloride 0.9% [Saline Flush] 2.5 ml FLUSH ASDIRECTED PRN Saline Lock Insert [OM.PC] Routine 04/26/21 21:00 Doxazosin [Cardura] 4 mg PO BEDTIME 04/27/21 08:24 INR,PT,PROTHROMBIN TIME [COAG] Routine 04/27/21 09:00 Digoxin [Lanoxin] 125 mcg PO DAILY Finasteride [Proscar] 5 mg PO DAILY 04/27/21 14:00 Warfarin Dosing [Coumadin Ask] 1 each PO DAILY@1400 - Plan Plan:: 85 yo male with pmh of Parkinson's admitted for pneumonia. 1. Community-acquired pneumonia: - continue Rocephin and azithromycin. -Continues to improve daily. 2. Metabolic encephalopathy vs advancing parkinson's dementia: -Patient is back to baseline. Does have moments of somnolence which is likely secondary to Parkinson's. -Head CT negative -Continue Parkinson medication carbidopa levodopa 3. Hypernatremia -Encouraged to drink more fluids, understands -Resolved sodium 145 today 4. Recent hip fracture -Resume physical therapy 5. Atrial fibrillation/hypertension -INR initially supratherapeutic -Monitor INR daily pharmacy to help dose Coumadin -Continue metoprolol and digoxin 6. BPH -Continue finasteride and Flomax VTE prophylaxis: Coumadin CODE STATUS: DNR/DNI Dispo: Likely discharge back to [place] in a.m. today we did discuss palliative measures with as she was hoping patient would reach baseline prior to fall. We expressed that likely this is not going to happen but she is continuing to want to see how he does over the next month or so physical therapy. She appreciated discussion regarding palliative and quality of life and would consider this when she is ready.
[2021-04-27] MEDS: Metoprolol Tartrate 25 MG Tab PO SCH ×2 (09:56→20:59)
[2021-04-27] MEDS: Finasteride 5 MG Tab PO SCH (09:56)
[2021-04-27] MEDS: Digoxin 125 MCG Tab PO SCH (09:57)
[2021-04-27] MEDS: Levothyroxine 25 MCG Tab PO SCH (09:57)
[2021-04-27] MEDS: Azithromycin 500 MG in Sodium Chloride 0.9% 250 ML IV SCH (17:06)
[2021-04-27] MEDS: Doxazosin 4 MG Tab PO SCH (20:59)
[2021-04-28] MEDS: Carbidopa/Levodopa 25-100 MG Tab PO SCH ×2 (00:29→05:56)
[2021-04-28 05:56] LABS: BLOOD UREA NITROGEN,BUN 23 mg/dL (7.0-18.0); CARBON DIOXIDE,CO2 30.7 mmol/L (21.0-32.0); CHLORIDE,CL 107 mmol/L (98-107); GLUCOSE RANDOM 108 mg/dL (74-106); POTASSIUM,K 3.5 mmol/L (3.5-5.1); SODIUM,NA 145 mmol/L (136-148)
[2021-04-28] MEDS: Metoprolol Tartrate 25 MG Tab PO SCH (08:46)
[2021-04-28] MEDS: Finasteride 5 MG Tab PO SCH (08:46)
[2021-04-28] MEDS: Digoxin 125 MCG Tab PO SCH (08:47)
[2021-04-28] MEDS: Levothyroxine 25 MCG Tab PO SCH (08:48)
[2021-04-28] MEDS ORDERED: Levofloxacin 750 MG Tab PO SCH (09:00)
--- NOTE | 2021-04-28 10:57 | PCM.DCSUM1 ---
Discharge Summary - Hospital Course Brief History: 85 yo male with pmh of Parkinson's and dementia who was placed at [facility] due to recent right hip fracture. Patient was brought to the ER due to concerns of pneumonia. PAtient had course breath sounds and was nonverbal. According to patient is normally not orientated but does speak. Apparently there had been a sharp decline in his mental status since admitted to [facility]. - Discharge Data Discharge Date: 04/28/21 Discharge Disposition: DC/Tfer to SNF 03 Condition: Stable - Referral to Home Health Primary Care Physician: Jonathan Wilde MD - Discharge Diagnosis/Problem(s) (1) Parkinson disease SNOMED Code(s): 48448291 ICD Code: G20 - PARKINSON'S DISEASE Status: Acute (2) CAP (community acquired pneumonia) SNOMED Code(s): 287975226 ICD Code: J18.9 - PNEUMONIA, UNSPECIFIED ORGANISM Status: Acute Qualifiers: Laterality: left Lung location: upper lobe of lung Qualified Code(s): J18.9 - Pneumonia, unspecified organism (3) Metabolic encephalopathy SNOMED Code(s): 86559504 ICD Code: G93.41 - METABOLIC ENCEPHALOPATHY Status: Acute (4) Afib SNOMED Code(s): 55037880 ICD Code: I48.91 - UNSPECIFIED ATRIAL FIBRILLATION Status: Chronic (5) HTN (hypertension) SNOMED Code(s): 21000726 ICD Code: I10 - ESSENTIAL (PRIMARY) HYPERTENSION Status: Chronic Qualifiers: Hypertension type: essential hypertension Qualified Code(s): I10 - Essential (primary) hypertension (6) Hypothyroidism SNOMED Code(s): 45741149 ICD Code: E03.9 - HYPOTHYROIDISM, UNSPECIFIED Status: Chronic (7) BPH (benign prostatic hyperplasia) SNOMED Code(s): 035016492 ICD Code: N40.0 - BENIGN PROSTATIC HYPERPLASIA WITHOUT LOWER URINRY TRACT SYMP Status: Chronic (8) Hypernatremia SNOMED Code(s): 312130430 ICD Code: E87.0 - HYPEROSMOLALITY AND HYPERNATREMIA Status: Acute - Patient Summary/Data Consults: Consultations 04/25/21 13:32 Consult to Hospice [CONS] Routine 04/26/21 11:50 PT Evaluation and Treatment [CONS] Routine Hospital Course: Admission diagnoses CAP Metabolic encephalopathy Supratherapeutic INR Discharge diagnoses CAP Metabolic encephalopathy resolved Supratherapeutic INR Other PMH A. fib Hypertension Hypothyroidism BPH Parkinson's Dementia Dario was admitted secondary to altered mental status initially considered to be related to Parkinson's. He was found to have pneumonia and was treated with Rocephin and azithromycin. Patient mentation slowly improved. Head CT negative. Altered mental status, metabolic encephalopathy likely secondary to Parkinson's dementia and exacerbated by acute illness. Patient became very alert and talkative while admitted after a couple days of antibiotic therapy. Patient did have hyponatremia during his stay at some point the has started cutting back amount of water she was giving the patient. We discussed with her that he needs to take slow steady drinks but we should not withhold water if he is thirsty. He was treated with D5 W and hypernatremia improved. Physical therapy evaluated patient patient was able to transfer to chair but has trouble following direction was not able to directly ambulate. On admission patient also notes that the to be supratherapeutic INR. During his stay Coumadin has been held. Today patient is doing much better lab work stable. Patient will be transferred back to [facility]. Patient at bedside updated on this which she is in agreement of. We did discuss at some length palliative and hospice care at some point as hip fracture was likely large event within his slow steady decline in mentation. At this time she is not wanting palliative or hospice but understands that this is an option in the future. Karel will be discharged home on Levaquin 750 mg every 48 hours for 2 more doses. He is to continue home medications. Coumadin will be adjusted to 2.5 mg daily holding the dose today 04/28/2021. Recheck INR on Monday. He is to return to ER clinic if concerns should arise. Follow-up with [facility] physician on rounds. - Patient Instructions Diet: Regular Diet as Tolerated (thin consistency) Activity: As Tolerated Driving: Do Not Drive Showering/Bathing: May Shower Notify Provider of: Fever, Increased Pain, Swelling and Redness, Drainage, Nausea and/or Vomiting Other/Special Instructions: PT/OT/ST to evaluate and treat. Check INR 05/03, results to Dr Wilde. - Discharge Plan *PRESCRIPTION DRUG MONITORING PROGRAM REVIEWED*: Not Applicable *COPY OF PRESCRIPTION DRUG MONITORING REPORT IN PATIENT FELIPE: Not Applicable Prescriptions/Med Rec: Warfarin [Coumadin] 2.5 mg PO DAILY #10 tab levoFLOXacin [Levaquin] 750 mg PO Q48H #2 tab traMADol [Ultram] 50 mg PO Q6H PRN #10 tab PRN Reason: severe pain Home Medications: Home Meds Carbidopa/Levodopa [Carbidopa-Levodopa 25-100] 25 - 100 mg PO QID 02/22/21 [History] Digoxin 125 mcg PO DAILY 02/22/21 [History] Doxazosin Mesylate [Cardura] 4 mg PO DAILY 02/22/21 [History] Finasteride [Proscar] 5 mg PO DAILY 02/22/21 [History] Levothyroxine 25 mcg PO DAILY 02/22/21 [History] Metoprolol Succinate 50 mg PO DAILY 02/22/21 [History] Carboxymethylcellulose Sodium [Artificial Tears] 1 drop EYEBOTH Q12H PRN 04/22/21 [History] Cholecalciferol (Vitamin D3) [Vitamin D3] 4,000 unit PO DAILY 04/22/21 [History] Docusate Sodium 100 mg PO BID 04/22/21 [History] Magnesium Hydroxide [Milk of Magnesia] 30 ml PO DAILY PRN 04/22/21 [History] Mirtazapine 7.5 mg PO BEDTIME 04/22/21 [History] Vit C/E/Zn/Coppr/Lutein/Zeaxan [Preservision Areds 2 Softgel] 1 each PO DAILY 04/22/21 [History] bisacodyL [Dulcolax] 10 mg RECTAL DAILY PRN 04/22/21 [History] Warfarin [Coumadin] 2.5 mg PO DAILY #10 tab 04/28/21 [Rx] levoFLOXacin [Levaquin] 750 mg PO Q48H #2 tab 04/28/21 [Rx] traMADol [Ultram] 50 mg PO Q6H PRN #10 tab 04/28/21 [Rx] Oxygen Therapy Mode: Room Air Patient Handouts: Hypoxia, Community-Acquired Pneumonia, Adult Referrals: Jonathan iWlde MD [Primary Care Provider] - - Discharge Summary/Plan Comment DC Time >30 min.: No - Patient Data Vitals - Most Recent: Last Vital Signs Temp 97.1 F 04/28/21 08:00 Pulse 70 04/28/21 08:47 Resp 19 04/28/21 08:00 BP 116/82 04/28/21 08:46 Pulse Ox 95 04/28/21 08:00 Weight - Most Recent: 57.5 kg I&O - Last 24 hours: Intake & Output 04/27/21 04/28/21 04/28/21 22:59 06:59 14:59 Intake Total 1000 200 Output Total 0 Balance 1000 200 Lab Results - Last 24 hrs: Laboratory Results - last 24 hr 04/28/21 04/28/21 04/28/21 Range/Units 04:42 04:42 04:42 WBC 9.33 (4.0-11.0) K/uL RBC 3.60 L (4.50-5.90) M/uL Hgb 10.1 L (13.0-17.0) g/dL Hct 32.2 L (38.0-50.0) % MCV 89.4 (80.0-98.0) fL MCH 28.1 (27.0-32.0) pg MCHC 31.4 (31.0-37.0) g/dL RDW Std Deviation 44.0 (28.0-62.0) fl RDW Coeff of Yanna 13 (11.0-15.0) % Plt Count 193 (150-400) K/uL MPV 10.00 (7.40-12.00) fL Neut % (Auto) 79.7 (48.0-80.0) % Lymph % (Auto) 10.7 L (16.0-40.0) % Briscoe % (Auto) 5.4 (0.0-15.0) % Eos % (Auto) 4.1 (0.0-7.0) % Baso % (Auto) 0.1 (0.0-1.5) % Neut # (Auto) 7.4 H (1.4-5.7) K/uL Lymph # (Auto) 1.0 (0.6-2.4) K/uL Briscoe # (Auto) 0.5 (0.0-0.8) K/uL Eos # (Auto) 0.4 (0.0-0.7) K/uL Baso # (Auto) 0.0 (0.0-0.1) K/uL Nucleated RBC % 0.0 /100WBC Nucleated RBCs # 0 K/uL INR 3.96 Sodium 145 (136-148) mmol/L Potassium 3.5 (3.5-5.1) mmol/L Chloride 107 (98-107) mmol/L Carbon Dioxide 30.7 (21.0-32.0) mmol/L BUN 23 H (7.0-18.0) mg/dL Creatinine 1.1 (0.8-1.3) mg/dL Est Cr Clr Drug Dosing 41.38 mL/min Estimated GFR (MDRD) > 60.0 ml/min Glucose 108 H (74-106) mg/dL Calcium 8.1 L (8.5-10.1) mg/dL Magnesium 1.9 (1.8-2.4) mg/dL SARS-CoV-2 RNA (GARRETT) (NEGATIVE) 04/28/21 Range/Units 08:15 WBC (4.0-11.0) K/uL RBC (4.50-5.90) M/uL Hgb (13.0-17.0) g/dL Hct (38.0-50.0) % MCV (80.0-98.0) fL MCH (27.0-32.0) pg MCHC (31.0-37.0) g/dL RDW Std Deviation (28.0-62.0) fl RDW Coeff of Yanna (11.0-15.0) % Plt Count (150-400) K/uL MPV (7.40-12.00) fL Neut % (Auto) (48.0-80.0) % Lymph % (Auto) (16.0-40.0) % Briscoe % (Auto) (0.0-15.0) % Eos % (Auto) (0.0-7.0) % Baso % (Auto) (0.0-1.5) % Neut # (Auto) (1.4-5.7) K/uL Lymph # (Auto) (0.6-2.4) K/uL Briscoe # (Auto) (0.0-0.8) K/uL Eos # (Auto) (0.0-0.7) K/uL Baso # (Auto) (0.0-0.1) K/uL Nucleated RBC % /100WBC Nucleated RBCs # K/uL INR Sodium (136-148) mmol/L Potassium (3.5-5.1) mmol/L Chloride (98-107) mmol/L Carbon Dioxide (21.0-32.0) mmol/L BUN (7.0-18.0) mg/dL Creatinine (0.8-1.3) mg/dL Est Cr Clr Drug Dosing mL/min Estimated GFR (MDRD) ml/min Glucose (74-106) mg/dL Calcium (8.5-10.1) mg/dL Magnesium (1.8-2.4) mg/dL SARS-CoV-2 RNA (GARRETT) NEGATIVE (NEGATIVE) [place] Results - Last 24 hrs: Microbiology 04/22/21 16:46 Aerobic Blood Culture - Final Blood - Venous - Lab Draw NO GROWTH AFTER 5 DAYS Anaerobic Blood Culture - Final NO GROWTH AFTER 5 DAYS 04/22/21 15:38 Aerobic Blood Culture - Final Blood - Venous NO GROWTH AFTER 5 DAYS Anaerobic Blood Culture - Final NO GROWTH AFTER 5 DAYS Med Orders - Current: Current Medications Carbidopa/Levodopa (Carbidopa/Levodopa 25-100 Mg Tab) 1 tab PO QID [facility] Last Admin: 04/28/21 05:56 Dose: 1 tab Documented by: Digoxin (Digoxin 125 Mcg Tab) 125 mcg PO DAILY [facility] Last Admin: 04/28/21 08:47 Dose: 125 mcg Documented by: Doxazosin Mesylate (Doxazosin 4 Mg Tab) 4 mg PO BEDTIME [facility] Last Admin: 04/27/21 20:59 Dose: 4 mg Documented by: Finasteride (Finasteride 5 Mg Tab) 5 mg PO DAILY [facility] Last Admin: 04/28/21 08:46 Dose: 5 mg Documented by: Levofloxacin (Levofloxacin 750 Mg Tab) 750 mg PO Q48H [facility] Last Admin: 04/28/21 08:46 Dose: 750 mg Documented by: Levothyroxine Sodium (Levothyroxine 25 Mcg Tab) 25 mcg PO ACBREAKFAST [facility] Last Admin: 04/28/21 08:48 Dose: 25 mcg Documented by: Metoprolol Tartrate (Metoprolol Tartrate 25 Mg Tab) 25 mg PO BID [facility] Last Admin: 04/28/21 08:46 Dose: 25 mg Documented by: Sodium Chloride (Sodium Chloride 0.9% 2.5 Ml Syringe) 2.5 ml FLUSH ASDIRECTED PRN PRN Reason: Keep Vein Open Warfarin Sodium (Warfarin Ask Dosing) 1 each PO DAILY@1400 [facility] Last Admin: 04/27/21 15:10 Dose: Not Given Documented by: Discontinued Medications Diphenhydramine HCl (Diphenhydramine 50 Mg/Ml Sdv) Confirm Administered Dose 50 mg .ROUTE .STK-MED ONE Stop: 04/22/21 15:34 Last Admin: 04/22/21 15:43 Dose: Not Given Documented by: Diphenhydramine HCl (Diphenhydramine 50 Mg/Ml Sdv) 50 mg IVPUSH ONETIME ONE Stop: 04/22/21 15:43 Last Admin: 04/22/21 15:43 Dose: 50 mg Documented by: Sodium Chloride (Normal Saline) 1,000 mls @ 999 mls/hr IV .Bolus ONE Stop: 04/22/21 16:43 Last Admin: 04/22/21 15:45 Dose: 999 mls/hr Documented by: Ceftriaxone Sodium/Dextrose 1 (gm/ Premix) 50 mls @ 100 mls/hr IV ONETIME ONE Stop: 04/22/21 17:00 Last Admin: 04/22/21 17:19 Dose: 100 mls/hr Documented by: Azithromycin 500 mg/ Sodium (Chloride) 250 mls @ 250 mls/hr IV ONETIME [facility] Last Admin: 04/22/21 19:43 Dose: 250 mls/hr Documented by: Azithromycin 500 mg/ Sodium (Chloride) 250 mls @ 250 mls/hr IV Q24H [facility] Stop: 04/27/21 20:00 Last Admin: 04/27/21 17:06 Dose: 250 mls/hr Documented by: Ceftriaxone Sodium/Dextrose (Rocephin In Dextrose,Iso-Osm 1 Gm/50 Ml) 50 mls @ 100 mls/hr IV Q24H [facility] Stop: 04/27/21 20:00 Last Admin: 04/27/21 15:52 Dose: 100 mls/hr Documented by: Lactated Ringer's (Ringers, Lactated) 1,000 mls @ 125 mls/hr IV ASDIRECTED [facility] Last Admin: 04/24/21 06:16 Dose: 125 mls/hr Documented by: Sodium Chloride (Sodium Chloride 0.45%) 1,000 mls @ 100 mls/hr IV ASDIRECTED [facility] Sodium Chloride (Sodium Chloride 0.45%) 1,000 mls @ 50 mls/hr IV ASDIRECTED [facility] Last Admin: 04/24/21 19:38 Dose: 50 mls/hr Documented by: Dextrose/Water (Dextrose 5% In Water) 1,000 mls @ 50 mls/hr IV ASDIRECTED [facility] Stop: 04/26/21 07:14 Last Admin: 04/25/21 14:20 Dose: 50 mls/hr Documented by: Dextrose/Water (Dextrose 5% In Water) 1,000 mls @ 50 mls/hr IV ASDIRECTED [facility] Stop: 04/27/21 07:29 Last Admin: 04/26/21 12:05 Dose: 50 mls/hr Documented by: Ketamine HCl (Ketamine 500 Mg/10 Ml Mdv) Confirm Administered Dose 0 mg .ROUTE .STK-MED ONE Stop: 04/26/21 13:29 Levothyroxine Sodium (Levothyroxine 25 Mcg Tab) 25 mcg PO ACBREAKFAST [facility] Last Admin: 04/23/21 08:30 Dose: Not Given Documented by: Lorazepam (Lorazepam 2 Mg/Ml Sdv) 0.5 mg IVPUSH ONETIME ONE Stop: 04/22/21 15:57 Last Admin: 04/22/21 16:11 Dose: 0.5 mg Documented by: Metoprolol Succinate (Metoprolol Succinate 50 Mg Tab.Er) 50 mg PO DAILY [facility] Last Admin: 04/23/21 12:21 Dose: Not Given Documented by: Sodium Chloride (Sodium Chloride 0.9% 10 Ml Syringe) 10 ml FLUSH ASDIRECTED PRN PRN Reason: Keep Vein Open Last Admin: 04/22/21 15:44 Dose: 10 ml Documented by: Sodium Chloride (Sodium Chloride 0.9% 2.5 Ml Syringe) 2.5 ml FLUSH ASDIRECTED PRN PRN Reason: Keep Vein Open Last Admin: 04/22/21 15:44 Dose: 2.5 ml Documented by: Sodium Phosphate (Phosphorus #1 250 Mg Tab) 250 mg PO ONETIME ONE Stop: 04/24/21 13:16 Last Admin: 04/24/21 13:28 Dose: 250 mg Documented by:
== END 2021-04-28 10:50 | DRG 193 ==
LOC: MW.ED 14:50 → MW.MS 18:53
PROVIDERS: ADMIT Internal Medicine; ATTEND Internal Medicine
DX: J18.9 Pneumonia, unspecified organism (principal); R09.02 Hypoxemia; G93.41 Metabolic encephalopathy; E87.0 Hyperosmolality and hypernatremia; F03.90 Unspecified dementia, unspecified severity, without behavioral disturbance, psychotic disturbance, mood disturbance, and anxiety; N42.9 Disorder of prostate, unspecified; E87.1 Hypo-osmolality and hyponatremia; Z88.6 Allergy status to analgesic agent; N17.9 Acute kidney failure, unspecified; G20 Parkinson's disease; I48.91 Unspecified atrial fibrillation; Z66 Do not resuscitate; I10 Essential (primary) hypertension; E03.9 Hypothyroidism, unspecified; N40.0 Benign prostatic hyperplasia without lower urinary tract symptoms; R79.1 Abnormal coagulation profile; F02.80 Dementia in other diseases classified elsewhere, unspecified severity, without behavioral disturbance, psychotic disturbance, mood disturbance, and anxiety; F41.9 Anxiety disorder, unspecified; F32.9 Major depressive disorder, single episode, unspecified; E83.39 Other disorders of phosphorus metabolism; Z20.822 Contact with and (suspected) exposure to COVID-19; Z79.01 Long term (current) use of anticoagulants; Z79.890 Hormone replacement therapy; Z79.899 Other long term (current) drug therapy; Z88.5 Allergy status to narcotic agent; Z86.73 Personal history of transient ischemic attack (TIA), and cerebral infarction without residual deficits; S72.001D Fracture of unspecified part of neck of right femur, subsequent encounter for closed fracture with routine healing
CPT/HCPCS: 36415; 71045; 80053; 80162; 83605; 85025; 85610; 85730; 87040 ×2; 96365; 96375; 99285; J0696; J1200; J2060; J7030; U0002; 70450; 70450-26; 80048; 83735; 84100; 97110-GP; 97162-GP; 99284; A9270-GY; J0456; J7050; J7060; J7120